=== PATIENT | male | born 1955 | race Caucasian/White ===

== ENCOUNTER 2022-02-24 01:29 | Emergency (ER) | payer MEDICARE, SELFPAY ==
[2022-02-24 01:42] VITALS: BP 137/85; PULSE 60; RESP 20; TEMP 36.8; O2SAT 98; BMI 30.5
--- NOTE | 2022-02-24 02:29 | CRLHL7_ITS ---
For Patients: As a result of the Century Cures Act, medical imaging exams and procedure reports are released immediately into your electronic medical record. You may view this report before your referring provider. If you have questions, please contact your health care provider. INDICATION: Recent COVID-19, sudden onset migraine, left leg twitching TECHNIQUE: CT Head without i.v. contrast. Coronal and sagittal reformats were obtained. COMPARISON: None FINDINGS: CSF space: Unremarkable for age. Brain: No evidence of mass, acute infarction or hemorrhage is seen. No mass-effect or midline shift is seen. Mild diffuse cortical atrophy is noted. The brain parenchyma is otherwise normal in appearance with preservation of the briggs-white matter junction. Calvarium: The visualized paranasal sinuses are well aerated. The mastoid air cells are clear. The visualized orbits are grossly unremarkable. The calvarium is unremarkable in appearance with no fractures identified. IMPRESSION: 1. No evidence of acute infarction, intracranial hemorrhage, or mass-effect seen. Please note that all CT scans at this facility use dose modulation, iterative reconstruction, and/or weight-based dosing when appropriate to reduce radiation dose to as low as reasonably achievable. Dictated by: Jayant Hogan MD @ 02/24/2022 03:05:41 (Electronically Signed)
--- NOTE | 2022-02-24 02:29 | CRLHL7_ITS ---
For Patients: As a result of the Century Cures Act, medical imaging exams and procedure reports are released immediately into your electronic medical record. You may view this report before your referring provider. If you have questions, please contact your health care provider. INDICATION: Recent COVID-19, now with return of cough TECHNIQUE: Chest radiograph 2 views COMPARISON: 06/15/2016 FINDINGS: Mediastinum: The mediastinum is normal in appearance. The heart silhouette is normal in size and morphology. Lung: Both lungs are unremarkable in appearance. No sign of pleural effusion seen. No pneumothorax is identified. Bone and Soft tissue: Unremarkable for age. IMPRESSION: 1. No acute cardiopulmonary disease is seen. Dictated by: Jayant Hogan MD @ 02/24/2022 03:01:57 (Electronically Signed)
--- NOTE | 2022-02-24 02:31 | ED_ITS ---
HPI - General Adult General Time Seen by Provider: 02:00 Date Seen: 02/24/22 Chief complaint: Anxiety Stated complaint: Anxiety Time Seen by Provider: 02/24/22 01:43 Source: patient, RN notes reviewed and old records reviewed Mode of arrival: ambulatory Limitations: no limitations History of Present Illness HPI narrative: Gaetano is a very pleasant 66-year-old gentleman who is 13 years status post prostate cancer treatment with brachial therapy, history of left hip replacement and COVID 3 weeks ago who comes to the emergency room for evaluation regarding inability to sleep and new onset headache. Patient notes that he had COVID 3 weeks ago and since that time has had altered sleep. Notes he is really having a hard time sleeping at night and that is restless legs usually in his right leg has been very active. Tonight however he felt like he would be able to sleep as he was tired at approximately 2100 hours. He went to sleep and started worried about elevated blood pressure and that his dad had a stroke. He has not had a problem with his blood pressure nor did he take his blood pressure. He states that he then had the onset of a headache in the back of his head and that he does not have a history of headaches. However, he did tell nursing staff that he does get headaches. He denies any neck pain or visual changes. He notes that tonight his left leg is bothering where is usually it is right leg. He also notes that he has had the return of his cough over the past week. He denies fevers or chills. He is not currently on any blood thinners nor has he had a history of DVT or DVTs in the family. He states in the past he has used tonic water for its quinine as a treatment for his restless legs. Denies chest pain or change in any of his symptoms with activity. Sitting up seems to improve his headache. In regards to the headache it is located in the back of his head and worsens when he lays down. He denies neck/jaw pain. He states that this time it is a 2 but will suddenly increased up to an 8. He agrees that this is unusual for him. He denies any recent trauma. He has not taken any medications. Related Data Home Medications Medication Instructions Recorded Confirmed tamsulosin 0.4 mg capsule mg PO 02/24/22 Allergies Allergy/AdvReac Type Severity Reaction Status Date / Time No Known Drug Allergies Allergy Verified 02/24/22 05:44 Review of Systems Status of ROS: Reports: 10 or more systems reviewed and unremarkable except as noted in History and below Const: Denies: fever or chills Eyes: Denies: change in vision, blurry vision or light sensitivity ENMT: Reports: throat pain (Improved with drinking water.); Denies: difficulty swallowing or ear pain Cardio: Denies: chest pain, swelling of feet/ankles, shortness of breath with exertion or shortness of breath when lying down Resp: Denies: shortness of breath GI: Denies: abdominal pain, nausea, vomiting or difficulty swallowing : Reports: urinary frequency (Chronic); Denies: painful urination Musculo: Denies: back pain Integ/Breast: Denies: rash (Right ankle secondary to reaction to taping) Neuro: Reports: headache and involuntary movements (Restless leg symptoms in left leg.); Denies: numbness in extremities Psych: Reports: anxiety and change in sleep pattern (For 3 weeks) Endo: Denies: excessive urination [facility] Medical History History of prostate cancer Surgical History History of hip replacement Social History Smoking Status: Never smoker Do you use any of these nicotine containing products: None How often do you have a drink containing alcohol: never AUDIT-C Alcohol total score: 0 Non-prescribed substance use: denies use Exam Narrative: Exam Narrative: Past medical history: Prostate cancer 13 years ago. Treated with brachiotherapy. Results was chronic restless leg syndrome right greater than left. Left hip replacement Right shoulder pain Family history: Father had a left-sided stroke. Lived for 6 years after that. 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 Denies drug use Primary MD [facility] of the [facility]. Const: Vital Signs, click to edit/add: Vital Signs - 24 hr 02/24/22 01:42 02/24/22 06:23 Temperature 98.2 F 98.2 F Pulse Rate [Left P ulse Oximeter] 60 62 Respiratory Rate 20 20 Blood Pressure [Le ft Upper Arm] 137/85 128/81 Pulse Oximetry 98 Oxygen Delivery Me thod Room Air Documenting provider has reviewed patient's vital signs: yes Common normals: average body habitus, oriented x3, no limitations, healthy appearing and alert General appearance: cooperative Other: Upon my entry into exam room 2 patient was pacing in room. He was able to sit for exam without difficulty. HENMT: Common normals: normocephalic, head/scalp atraumatic and external ears normal Head and scalp: normocephalic and atraumatic Face and sinus: normal facial exam External ear: external ears normal Eye: Common normals: PERRL General eye: normal appearance of both eyes Pupil: PERRL Direct Ophthalmoscopy: no photophobia Neck & C-Spine: Common normals: full ROM and supple Other: Neck flexion movement or rotation does not increase pain. There is no pain in her neck with movement or palpation. Resp: Common normals: normal respiratory effort Effort & inspection: able to speak in complete sentences; not actively coughing Other: Patient is noted to have decreased breath sounds in the right lower lobe, very subtle. I do not auscultate any crackles. Cardio: Common normals: regular rate and regular rhythm Rate: regular rate Rhythm: regular rhythm Heart sounds: no murmurs and no rubs GI: Common normals: soft to palpation, non-tender and no masses Palpation: soft : Common normals: no CVA tenderness Bladder/kidney exam: no CVA tenderness Back & Pelvis: Common normals: no CVA tenderness Extremity: Common normals: normal to inspection Other: [place] size area of erythema on the right anterior medial ankle. Neuro: Common normals: oriented x3, moves all extremities, no focal motor deficits and no sensory deficits noted Sensorium/orientation: alert Speech: speech normal Psych: Common normals: mental status grossly normal and thought process normal Activity/motor behavior: appropriate eye contact Thought process: normal thought process Thought content: normal thought content Course Course Hospital Course: Differential diagnosis includes but is not limited to migraine, subarachnoid hemorrhage, tumor, pneumonia. At this time will obtain head CT, chest x-ray as well as check electrolytes and blood work. This will include a CBC, comprehensive panel, TSH, and CRP. Reevaluation(s) Reevaluation #1: Patient is informed that head CT and chest x-ray have been read by Radiology is normal. I am concerned about a retrocardiac infiltrate noted on lateral imaging in association with decreased breath sounds. I have discussed with patient treatment for a post COVID pneumonia which will be Zithromax 500 mg tonight. We will also treat him with for a migraine with Reglan 10 mg IV piggyback, Benadryl 50 mg IV and Toradol 15 mg IV. Patient will also receive 1 L of normal saline. Is receptive to this plan. While we were speaking he does now tell me that he is getting short of breath when he lays down. He describes this as immediately upon lying down and only with 1 or 2 breath and then this resolved. He has normal pulse and oximetry but will add D-dimer as he has recently had COVID. Vital Signs Vital signs: Initial Vital Signs Temperature 98.2 F 02/24/22 01:42 Temperature Source Temporal Artery Scan 02/24/22 01:42 Pulse Rate 60 02/24/22 01:42 Pulse Rhythm 02/24/22 01:42 Respiratory Rate 20 02/24/22 01:42 Blood Pressure 137/85 02/24/22 01:42 Blood Pressure Mean 102 02/24/22 01:42 Blood Pressure Position Sitting 02/24/22 01:42 Pulse Oximetry 98 02/24/22 01:42 Oxygen Delivery Method 02/24/22 01:42 Vital Signs Temperature 98.2 F 02/24/22 01:42 Pulse Rate 60 02/24/22 01:42 Respiratory Rate 20 02/24/22 01:42 Blood Pressure 137/85 02/24/22 01:42 Pulse Oximetry 98 02/24/22 01:42 Oxygen Delivery Method 02/24/22 01:42 Temperature 98.2 F 02/24/22 06:23 Pulse Rate 62 02/24/22 06:23 Respiratory Rate 20 02/24/22 06:23 Blood Pressure 128/81 02/24/22 06:23 Pulse Oximetry 98 02/24/22 01:42 Oxygen Delivery Method 02/24/22 01:42 Medical Decision Making MDM Narrative Medical decision making narrative: 1. Headache-patient received treatment with Reglan 10 mg IV, Toradol 15 mg IV, and Benadryl 50 mg. He had excellent improvement in his headache but did experience Reglan provoked anxiety in spite of the use of Benadryl 50 mg. Roberta ent did receive Ativan 0.5 mg IV with improvement. Currently he has had excellent improvement of his headache although it is not completely resolved. At this time he has no temporal artery tenderness, neurological deficit, evidence of subarachnoid hemorrhage or intracranial bleed. Return if symptoms recur. 2. Elevated O-mrpvg-vyulqua had elevated D-dimer and given onset of headache and shortness of breath with lying down we did do a CT of the head. No evidence of thrombus. PE study of the chest showed no evidence of PE noted show any evidence of pneumonia. My read of the x-ray had been a retrocardiac infiltrate. Patient did receive 500 mg of p.o. Zithromax with planned 4 days of additional treatment. However I did explain to patient that CT shows no evidence of pneumonia and therefore we will not continue that medication. Mr. Vences has no calf tenderness or calf swelling, history of PE, tachycardia or hypoxia, or chest pain. 3. Restless leg syndrome-patient notes restless leg syndrome worse tonight and affecting his right leg more than the left were usually it is the other way around. He is noted to be ambulating without difficulty. No evidence of ataxia. Magnesium level is within normal limits. He describes difficulty sleeping since COVID infection 3 weeks ago. He describes or anxiety as well as increase of restless legs. Ativan 1 mg tab is given to patient to help with sleep today. 4. Disposition -patient is discharged home. We have ruled out pneumonia, intracranial finding, abnormalities of the aorta, electrolyte imbalance, hypertension, meningitis. Patient will return for worsening symptoms. Patient was very anxious to depart and feeling better. During his times here he had no evidence of chest pain and heart exam was normal. After his departure I did add a troponin on as I was unable to find an etiology of patient's symptoms. Troponin does come back elevated at 0.05. I have attempted to call patient at home as I do want him to return for further evaluation. I left message on his cell. I also contacted the cut his contact Toby who is his girlfriend listed in his chart. She is going to attempt to locate him and have him come back in for a repeat troponin and EKG. 1000 hours: Mr. Vences was woken up by his girlfriend. He denies any chest pain but notes that he still gets that transient shortness of breath when he lies down. I explained to him my addition of troponin to his labs after he left and he agrees to return to the emergency room. He notes that his restless legs did increase quite a bit with the use of the Reglan. But the Ativan certainly did help. He is going to come back to the emergency room for continued cardiac workup. I have spoken to my partner Dr. Gutiérrez. She will be seeing patient today when he returns for cardiac workup. He states that will take him a while to get things together and I asked that he return sooner rather than later as this was an important finding and needs to be followed up on. Medical Records Medical records reviewed: Yes I reviewed the patient's medical records Lab Data Lab results reviewed: Yes I reviewed the patient's lab results Labs: Lab Results 02/24/22 02/24/22 02/24/22 Range/Units 02:29 02:29 02:30 WBC 5.54 (4.50-11.00) K/uL RBC 4.09 L (4.30-5.90) m/uL Hgb 12.2 L (13.5-17.5) gm/dL Hct 35.3 L (37.0-53.0) % MCV 86 (80-100) fL MCH 30 (26-34) pg MCHC 35 (32-36) gm/dL RDW Coeff of Bhakti 12.3 (11.5-15.5) % Plt Count 239 (140-440) K/uL Neut % (Auto) 45.7 (42.0-72.0) % Lymph % (Auto) 33.0 (20-44) % [place] % (Auto) 12.1 H (0.0-11.0) % Eos % (Auto) 8.1 H (0.0-7.0) % Baso % (Auto) 0.9 (0.0-3.0) % Neut # (Auto) 2.53 (1.7-7.0) K/uL Lymph # (Auto) 1.83 (0.90-2.90) K/uL [place] # (Auto) 0.70 (0.00-0.90) K/UL Eos # (Auto) 0.40 (0.00-0.50) K/uL Baso # (Auto) 0.05 (0.00-0.30) K/uL Abs Immat Gran (auto) 0.01 (0.00-0.30) K/uL D-Dimer Quant (PE/DVT) (0.00-0.50) ug/ml Sodium 132 L (135-149) mmol/L Potassium 4.4 (3.6-5.1) mmol/L Chloride 97 (96-114) mmol/L Carbon Dioxide 26 (20-32) mmol/L BUN 18 (7-30) mg/dL Creatinine 0.8 (0.5-1.5) mg/dL Estimated Creat Clear 78.68 Estimated GFR 97 ml/min Glucose 102 (60-115) mg/dL Calcium 8.9 (8.4-10.6) mg/dL Magnesium (1.5-2.6) mg/dL Total Bilirubin 0.2 (0.1-1.5) mg/dL AST 36 H (12-35) U/L ALT 33 (4-50) U/L Alkaline Phosphatase 101 (40-150) U/L Troponin I 0.05 H (0.01-0.04) ng/mL C-Reactive Protein < 0.5 L (0.5-1.0) mg/dL Total Protein 7.4 (6.0-8.3) g/dL Albumin 4.1 (3.3-5.0) g/dL TSH (0.270-4.200) uIU/mL 02/24/22 02/24/22 02/24/22 Range/Units 02:31 02:31 03:49 WBC (4.50-11.00) K/uL RBC (4.30-5.90) m/uL Hgb (13.5-17.5) gm/dL Hct (37.0-53.0) % MCV (80-100) fL MCH (26-34) pg MCHC (32-36) gm/dL RDW Coeff of Bhakti (11.5-15.5) % Plt Count (140-440) K/uL Neut % (Auto) (42.0-72.0) % Lymph % (Auto) (20-44) % [place] % (Auto) (0.0-11.0) % Eos % (Auto) (0.0-7.0) % Baso % (Auto) (0.0-3.0) % Neut # (Auto) (1.7-7.0) K/uL Lymph # (Auto) (0.90-2.90) K/uL [place] # (Auto) (0.00-0.90) K/UL Eos # (Auto) (0.00-0.50) K/uL Baso # (Auto) (0.00-0.30) K/uL Abs Immat Gran (auto) (0.00-0.30) K/uL D-Dimer Quant (PE/DVT) 2.01 H (0.00-0.50) ug/ml Sodium (135-149) mmol/L Potassium (3.6-5.1) mmol/L Chloride (96-114) mmol/L Carbon Dioxide (20-32) mmol/L BUN (7-30) mg/dL Creatinine (0.5-1.5) mg/dL Estimated Creat Clear Estimated GFR ml/min Glucose (60-115) mg/dL Calcium (8.4-10.6) mg/dL Magnesium 1.9 (1.5-2.6) mg/dL Total Bilirubin (0.1-1.5) mg/dL AST (12-35) U/L ALT (4-50) U/L Alkaline Phosphatase (40-150) U/L Troponin I (0.01-0.04) ng/mL C-Reactive Protein (0.5-1.0) mg/dL Total Protein (6.0-8.3) g/dL Albumin (3.3-5.0) g/dL TSH 0.707 (0.270-4.200) uIU/mL Imaging Data Chest x-ray: Attestation: I have reviewed the pertinent imaging results. My impression: Increased lung markings right perihilar area as well as retrocardiac infiltrate. Radiologist's impression: Read as normal. CT scan - head: Attestation: I have reviewed the pertinent imaging results. My impression: No evidence of intracranial bleed. Radiologist's impression: No acute findings Discharge Plan Discharge Clinical Impression: Cough, Headache Patient Disposition: Home, Self-Care Condition: Improved Additional Instructions: You may use Ativan for sleep today. Returns/seek medical attention for recurrence of headache, fever, worsening symptoms or onset of new symptoms. Prescriptions: No Action tamsulosin 0.4 mg capsule PO Follow Up/Referrals: Dominic Zhou MD [Primary Care Provider] - Stand Alone Forms: [employer] Info Instructions
[2022-02-24 02:44] LABS: Basophils Absolute Auto 0.05 K/uL (0.00-0.30); Basophils Percent Auto 0.9 % (0.0-3.0); Eosinophils Percent Auto 8.1 % (0.0-7.0); Hematocrit 35.3 % (37.0-53.0); Hemoglobin* 12.2 gm/dL (13.5-17.5); Immature Granulocytes Abs Auto 0.01 K/uL (0.00-0.30); Lymphocytes Absolute Auto 1.83 K/uL (0.90-2.90); Mean Corpuscular HGB Conc 35 gm/dL (32-36); Mean Corpuscular Hemoglobin 30 pg (26-34); Mean Corpuscular Volume 86 fL (80-100); Monocytes Percent Auto 12.1 % (0.0-11.0); Neutrophils Absolute Auto 2.53 K/uL (1.7-7.0); Neutrophils Percent Auto 45.7 % (42.0-72.0); Platelet Count* 239 K/uL (140-440); RDW Coefficient of Variation % 12.3 % (11.5-15.5); Red Blood Count 4.09 m/uL (4.30-5.90); Slide Review Reflex No; White Blood Count* 5.54 K/uL (4.50-11.00)
[2022-02-24 03:03] LABS: Albumin* 4.1 g/dL (3.3-5.0); Chloride* 97 mmol/L (96-114)
[2022-02-24 03:04] LABS: Potassium* 4.4 mmol/L (3.6-5.1); Sodium* 132 mmol/L (135-149)
[2022-02-24 03:06] LABS: Bilirubin Total* 0.2 mg/dL (0.1-1.5); Creatinine* 0.8 mg/dL (0.5-1.5); Est. Creatinine Clearance* 78.68; Estimated Glomerular Filt Rate 97 ml/min
[2022-02-24 03:07] LABS: Alanine Aminotransferase* 33 U/L (4-50); Alkaline Phosphatase* 101 U/L (40-150); Aspartate Amino Transferase* 36 U/L (12-35); Blood Urea Nitrogen* 18 mg/dL (7-30); Calcium* 8.9 mg/dL (8.4-10.6); Carbon Dioxide* 26 mmol/L (20-32); Glucose* 102 mg/dL (60-115); Total Protein* 7.4 g/dL (6.0-8.3)
[2022-02-24 03:08] LABS: Magnesium* 1.9 mg/dL (1.5-2.6)
[2022-02-24 03:14] LABS: C Reactive Protein* < 0.5 mg/dL (0.5-1.0)
[2022-02-24 03:37] LABS: TSH With Reflex to FT4* 0.707 uIU/mL (0.270-4.200)
[2022-02-24] MEDS: KETOROLAC 15 MG/ML inj IVP (03:57)
[2022-02-24] MEDS: diphenhydrAMINE 50 MG/ML inj IVP (03:57)
[2022-02-24] MEDS: 0.9 % SODIUM CHLORIDE 1000 ml 1,000 ML IV (03:58)
[2022-02-24] MEDS: AZITHROMYCIN 250 MG TABLET 500 MG PO (04:00)
[2022-02-24] MEDS: METOCLOPRAMIDE HCL 10 MG in 0.9 % SODIUM CHLORIDE 100 ml 100 ML 306 MG IVPB (04:00)
[2022-02-24] MEDS: LORazepam 2 MG/ML inj 0.5 MG IVP (05:03)
[2022-02-24 05:06] LABS: D Dimer Quantitative* 2.01 ug/ml (0.00-0.50)
--- NOTE | 2022-02-24 05:14 | CRLHL7_ITS ---
For Patients: As a result of the Century Cures Act, medical imaging exams and procedure reports are released immediately into your electronic medical record. You may view this report before your referring provider. If you have questions, please contact your health care provider. INDICATION: Elevated D-dimer. Cough. Recent COVID COMPARISON: None TECHNIQUE: : CT examination of the chest was performed with the uneventful intravenous administration of 95 cc of Isovue 370 while thin axial sections were obtained from above the apices of the lungs to the lung bases. Please note that all CT scans at this facility use dose modulation, iterative reconstruction, and/or weight-based dosing when appropriate to reduce radiation dose to as low as reasonably achievable. FINDINGS: : HEART and MEDIASTINUM: The heart size is normal. There is no mediastinal or hilar adenopathy or mass. There is no pericardial effusion.Atherosclerotic vascular calcifications including the coronary arteries. PULMONARY ARTERIAL CIRCULATION: There is no visible intraluminal filling defect to suggest pulmonary embolus. LUNGS: The lungs show no focal consolidation or mass. The airways appear normal. PLEURAL SPACES: There is no pleural effusion, pneumothorax or pleural based mass. VISUALIZED UPPER ABDOMEN: Hepatic steatosis incidental small fat containing Bochdalek`s hernias OSSEOUS STRUCTURES: Age-appropriate appearance. No acute fracture or destructive process. TUBES and LINES: None. IMPRESSION: No finding of pulmonary embolus. The lungs and pleural spaces appear normal. Please note that all CT scans at this facility use dose modulation, iterative reconstruction, and/or weight-based dosing when appropriate to reduce radiation dose to as low as reasonably achievable. Dictated by Binh Guerra MD @ 02/24/2022 6:12:32 AM (Electronically Signed)
[2022-02-24 06:23] VITALS: BP 128/81; PULSE 62; RESP 20; TEMP 36.8
[2022-02-24] MEDS: LORazepam 1 MG TABLET PO (06:23)
[2022-02-24 07:37] LABS: Troponin I* 0.05 ng/mL (0.01-0.04)
== END 2022-02-24 06:24 | disposition home or self-care (01) ==
PROVIDERS: Emergency Provider Family Medicine; PCP Family Medicine
DX: R51.9 Headache, unspecified (principal); R79.89 Other specified abnormal findings of blood chemistry; G25.81 Restless legs syndrome
CPT/HCPCS: 36415; 70450; 71046; 71260; 80053; 83735; 84443; 84484; 85025; 85379; 86140; 96365; 96375; 99282; 99285; A9270; J1200; J1885; J2060; J2765; J7030; Q9967

== ENCOUNTER 2022-02-24 11:17 | Emergency (ER) | payer MEDICARE, SELFPAY ==
[2022-02-24 11:28] VITALS: BP 183/101; PULSE 57; RESP 18; TEMP 36.4; O2SAT 97; BMI 30.5
[2022-02-24 12:00] VITALS: BP 168/94; PULSE 54
[2022-02-24 12:30] VITALS: BP 166/104; PULSE 48; PULSE 49; RESP 18; O2SAT 97
[2022-02-24 12:32] LABS: Troponin I* 0.04 ng/mL (0.01-0.04)
[2022-02-24 13:00] VITALS: BP 168/104; PULSE 52; O2SAT 97
--- NOTE | 2022-02-24 13:11 | ED_ITS ---
HPI - General Adult General Date Seen: 02/24/22 Chief complaint: Unspecified Complaint, Adult Stated complaint: Elevated trop Time Seen by Provider: 02/24/22 11:22 Source: patient History of Present Illness HPI narrative: Patient is a 66-year-old male with recent history of COVID, seen last night with headache and some shortness of breath when he laid down. He attributes this to feeling panicky. He was treated for his headache, given something for anxiety, says he went home and was able to sleep, felt much better. He did have a troponin drawn which after his release came back at 0.05. He had an elevated D- dimer and had a CT scan of the chest which was unremarkable. He does tell me that he has had some shortness of breath with exertion since his COVID diagnosis. 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 He has attributed this to his COVID. He has not had any chest pain either last night or with exertion. He does not smoke. He does not have a personal or family history of coronary artery disease. Today he is feeling well, does not have any symptoms at this time. Related Data Home Medications Medication Instructions Recorded Confirmed tamsulosin 0.4 mg capsule mg PO 02/24/22 Allergies Allergy/AdvReac Type Severity Reaction Status Date / Time No Known Drug Allergies Allergy Verified 02/24/22 05:44 Review of Systems Status of ROS: Reports: 10 or more systems reviewed and unremarkable except as noted in History and below [facility] Medical History History of prostate cancer Surgical History History of hip replacement Social History Smoking Status: Never smoker Do you use any of these nicotine containing products: None How often do you have a drink containing alcohol: never AUDIT-C Alcohol total score: 0 Non-prescribed substance use: denies use Exam Narrative: Exam Narrative: Vital signs as noted above. In general, an alert, well-appearing patient. Head: Normocephalic, atraumatic. Eyes: Pupils are equal reactive. Extraocular movements are full. Conjunctivae are normal. ENT: Mucous membranes are moist. Throat is normal. Neck: Supple without lymphadenopathy. Heart: Regular rate and rhythm. No murmur or rub. Lungs: Clear bilaterally. No increased work of breathing, crackles or wheezes. Abdomen: Soft and nontender. No organomegaly. Extremities: Well perfused. No edema. No calf tenderness. Pulses intact. Neurologic: Patient is alert and oriented to person and place. Speech is fluent. Face is symmetric. Moves all extremities equally. Affect: Normal. Skin: Warm and dry. Well perfused. Const: Vital Signs, click to edit/add: Vital Signs - 24 hr 02/24/22 11:28 Temperature 97.5 F L Pulse Rate [Right] 57 L Respiratory Rate 18 Blood Pressure [Ri ght Upper Arm] 183/101 H Pulse Oximetry 97 Oxygen Delivery Me thod Room Air Documenting provider has reviewed patient's vital signs: yes Course Course Hospital Course: I reviewed patient's records from last night. We did an EKG here today which shows a sinus bradycardia, no acute ST segment changes. Nonspecific T-wave changes with flattening of the T-waves in the inferior leads and lateral leads. I rechecked the troponin, which was 0.04 today. His blood pressure was elevated on arrival at 183/101. I do not see that they have recorded a recheck, but I did see a reach checked blood pressure in the room of 163 over I believe around 90. Given that the patient is asymptomatic at this time, and that troponin is stable to slightly improved, I do not think further workup is necessary at this time. I have reviewed with him that given that he is having some shortness of breath with exertion, my bias would be to get a stress test done just to make sure that there is nothing cardiac going on here. It certainly may be that this is all related to his recent COVID, but I think it would be worthwhile to just r ule out an alternate diagnosis. I have asked him to follow up with his primary doctor in the coming week to discuss this. In the meantime, if he has any acute symptoms, if he develops any exertional chest pain, if he has worsening shortness of breath or any persistent symptoms at rest, he should return to the emergency department right away. He is comfortable with that plan. Vital Signs Vital signs: Initial Vital Signs Temperature 97.5 F L 02/24/22 11:28 Temperature Source Temporal Artery Scan 02/24/22 11:28 Pulse Rate 57 L 02/24/22 11:28 Respiratory Rate 18 02/24/22 11:28 Blood Pressure 183/101 H 02/24/22 11:28 Blood Pressure Mean 128 02/24/22 11:28 Blood Pressure Position Sitting 02/24/22 11:28 Pulse Oximetry 97 02/24/22 11:28 Oxygen Delivery Method 02/24/22 11:28 Vital Signs Temperature 97.5 F L 02/24/22 11:28 Pulse Rate 57 L 02/24/22 11:28 Respiratory Rate 18 02/24/22 11:28 Blood Pressure 183/101 H 02/24/22 11:28 Pulse Oximetry 97 02/24/22 11:28 Oxygen Delivery Method 02/24/22 11:28 Temperature 97.5 F L 02/24/22 11:28 Pulse Rate 57 L 02/24/22 11:28 Respiratory Rate 18 02/24/22 11:28 Blood Pressure 183/101 H 02/24/22 11:28 Pulse Oximetry 97 02/24/22 11:28 Oxygen Delivery Method 02/24/22 11:28 Medical Decision Making Lab Data Labs: Lab Results 02/24/22 Range/Units 11:45 Troponin I 0.04 (0.01-0.04) ng/mL Discharge Plan Discharge Clinical Impression: Suspected condition not found Patient Disposition: Home, Self-Care Condition: Stable Additional Instructions: Follow-up with your primary doctor in the next week or so to discuss whether stress testing would be appropriate. In the meantime, return to the emergency department if you have any chest pain, significant shortness of breath, li ghtheadedness or other concerning symptoms. Prescriptions: No Action tamsulosin 0.4 mg capsule PO Follow Up/Referrals: Dominic Zhou MD [Primary Care Provider] - Stand Alone Forms: [facility] Info Instructions
== END 2022-02-24 13:20 | disposition home or self-care (01) ==
PROVIDERS: Emergency Provider Emergency Medicine; PCP Family Medicine
DX: R79.89 Other specified abnormal findings of blood chemistry (principal); Z71.1 Person with feared health complaint in whom no diagnosis is made
CPT/HCPCS: 36415; 84484; 99282; 99283

== ENCOUNTER 2023-12-07 20:12 | Emergency (ER) | payer MEDICARE, SELFPAY ==
[2023-12-07 20:28] VITALS: BP 214/107; PULSE 75; RESP 16; TEMP 36.9; O2SAT 98; BMI 29.8
--- NOTE | 2023-12-07 20:42 | ED.GENADULT ---
HPI - General Adult General Chief complaint: Unspecified Complaint, Adult Stated complaint: Short of breath, slurred seach Time Seen by Provider: 12/07/23 20:31 Source: patient Mode of arrival: ambulatory Limitations: no limitations History of Present Illness HPI narrative: 68-year-old male presenting today with weakness. Patient states that he walked out to his mailbox which is up several steps when he got to the top he felt very weak, shaky and his tongue felt funny. He went back inside had diarrhea in continued to feel shaky. He states that now he is feeling better wanted to come in to be evaluated. He is concerned that his blood pressure is elevated. He states that he has had elevated blood pressures in the past and is not currently on any treatment since his blood pressures got better with weight loss. 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 He denies feeling short of breath with recent physical activity. He denies any recent illness, cough, chest pain. He denies any abdominal discomfort. He denies feeling dizzy or lightheaded. Denies diaphoresis. Patient denies a headache. No neck pain. No vertigo. Past surgical history significant for multiple orthopedic surgeries. Patient states that he takes Flomax and some kind of pain medication that he is unsure the name of. Related Data Home Medications ?Medication ?Instructions ?Recorded ?Confirmed tamsulosin 0.4 mg capsule mg PO 02/24/22 Allergies Allergy/AdvReac Type Severity Reaction Status Date / Time No Known Drug Allergies Allergy Verified 02/24/22 05:44 Review of Systems Status of ROS: Reports: 10 or more systems reviewed and unremarkable except as noted in History and below [facility] Medical History History of prostate cancer ?Z85.46 - Personal history of malignant neoplasm of prostate (ICD-10) Surgical History History of hip replacement ?Z96.649 - Presence of unspecified artificial hip joint (ICD-10) Social History Smoking Status: Never smoker Do you use any of these nicotine containing products: None How often do you have a drink containing alcohol: never AUDIT-C Alcohol total score: 0 Non-prescribed substance use: denies use Exam Narrative: Exam Narrative: Well-nourished well-developed patient, is a bit anxious. Alert and oriented. Answers questions appropriately. Mood and affect are appropriate. Thoughts are goal oriented and rational. No tangential or magical thinking noted. Patient speaks in full sentences without needing to catch his breath. Speech is not slurred or pressured, he has no word-finding difficulty. He pronounces everything normally. HEENT: Normocephalic atraumatic. Pupils are equally round reactive to light. Extraocular muscles are intact. Conjunctivae are moist without any icterus noted. Moist mucous membranes. Posterior pharynx is normal. Neck is soft without any lymphadenopathy or thyromegaly. No masses are appreciated. Cardiovascular: Heart is regular rate and rhythm S1 and S2 are present without any murmurs. Lungs: Clear to auscultation bilaterally no wheezes rhonchi or rales are appreciated. Patient takes deep breaths without any discomfort. Abdomen: Soft and nontender, quite protuberant. Extremities: Bilateral lower extremities are without edema. Normal DP and PT pulses. Skin: Well perfused without any obvious rashes. Strength is 5/5 of the upper and lower extremities. Reflexes are 2+ and symmetric at the knees. Romberg sign is negative. Cranial nerves 3-12 are normal. Acfvhl-ff-occe is normal. Rqny-fz-nryy is normal. There is no nystagmus either horizontally or vertically. Gait is normal. Const: Vital Signs, click to edit/add: Vital Signs - 24 hr 12/07/23 20:28 12/07/23 22:17 Temperature 98.4 F Pulse Rate [Pulse Oximeter] 75 64 Respiratory Rate 16 16 Blood Pressure [Ri ght Upper Arm] 214/107 H 144/99 H Pulse Oximetry 98 97 Oxygen Delivery Me thod Room Air Room Air Course Course ED Course: IV is established and patient is given 0.5 mg of Ativan. EKG, read by me, shows normal sinus rhythm, pulse 59 Lab work was drawn: CBC and chemistries unremarkable. Normal thyroid. LFTs unremarkable. Normal troponin. After treatment patient felt significantly better. He was no longer feeling weak or shaky. Blood pressure dropped to 144/99. However, he stated that his tongue still felt funny, despite everything else feeling significantly better. He describes it as feeling thick. Because of this we did proceed with a head CT which is unremarkable and head and neck CTA, which were both unremarkable aside from some carotid bulb plaque and vertebral artery focal stenosis. I did consult with Dr. Christie, neurology at [facility] who did not feel that these lesions would explain his symptoms. Vital Signs Vital signs: Initial Vital Signs Temperature 98.4 F 12/07/23 20:28 Temperature Source Temporal Artery Scan 12/07/23 20:28 Pulse Rate 75 12/07/23 20:28 Respiratory Rate 16 12/07/23 20:28 Blood Pressure 214/107 H 12/07/23 20:28 Blood Pressure Mean 142 H 12/07/23 20:28 Blood Pressure Position Sitting 12/07/23 20:28 Pulse Oximetry 98 12/07/23 20:28 Oxygen Delivery Method Room Air 12/07/23 20:28 Vital Signs Temperature 98.4 F 12/07/23 20:28 Pulse Rate 75 12/07/23 20:28 Respiratory Rate 16 12/07/23 20:28 Blood Pressure 214/107 H 12/07/23 20:28 Pulse Oximetry 98 12/07/23 20:28 Oxygen Delivery Method Room Air 12/07/23 20:28 Temperature 98.4 F 12/07/23 20:28 Pulse Rate 64 12/07/23 22:17 Respiratory Rate 16 12/07/23 22:17 Blood Pressure 144/99 H 12/07/23 22:17 Pulse Oximetry 97 12/07/23 22:17 Oxygen Delivery Method Room Air 12/07/23 22:17 Medications Administered Medications: Discontinued Medications Generic Name Dose Route Start Last Admin Trade Name Freq PRN Reason Stop Dose Admin Lorazepam 0.5 mg 12/07/23 20:41 12/07/23 21:05 Lorazepam 2 Mg/Ml Inj IVP 12/07/23 20:42 0.5 mg ONCE ONE Administration Medical Decision Making MDM Narrative Medical decision making narrative: 68-year-old male with elevated blood pressure, episode of weakness and discomfort of the tongue. Patient again feeling significantly better after treatment with Ativan in the ED today. Workup was unremarkable. Recommend he follow up with primary care provider in the next 1-2 weeks and check his blood pressures periodically. Medical Records Medical records reviewed: Yes I reviewed the patient's medical records Lab Data Lab results reviewed: Yes I reviewed the patient's lab results Labs: Lab Results 12/07/23 12/07/23 12/07/23 Range/Units 20:57 20:57 20:57 WBC 5.25 (4.50-11.00) K/uL RBC 4.56 (4.30-5.90) m/uL Hgb 13.4 L (13.5-17.5) gm/dL Hct 39.2 (37.0-53.0) % MCV 86 (80-100) fL MCH 29 (26-34) pg MCHC 34 (32-36) gm/dL RDW Coeff of Bhakti 12.8 (11.5-15.5) % Plt Count 195 (140-440) K/uL Neut % (Auto) 51.5 (42.0-72.0) % Lymph % (Auto) 34.3 (20-44) % [place] % (Auto) 8.8 (0.0-11.0) % Eos % (Auto) 4.6 (0.0-7.0) % Baso % (Auto) 0.8 (0.0-3.0) % Neut # (Auto) 2.71 (1.7-7.0) K/uL Lymph # (Auto) 1.80 (0.90-2.90) K/uL [place] # (Auto) 0.50 (0.00-0.90) K/UL Eos # (Auto) 0.24 (0.00-0.50) K/uL Baso # (Auto) 0.04 (0.00-0.30) K/uL Abs Immat Gran (auto) 0.00 (0.00-0.30) K/uL Imm/Tot Granulo (auto) 0.0 % Sodium Cancelled 133 L Potassium Cancelled 4.1 Chloride Cancelled Carbon Dioxide Anion Gap BUN Creatinine Estimated Creat Clear Estimated GFR Glucose Lactate (0.5-1.9) mmol/L Calcium Total Bilirubin (0.1-1.5) mg/dL Direct Bilirubin (0.0-0.5) mg/dL AST (12-35) U/L ALT (4-50) U/L Alkaline Phosphatase (40-150) U/L Troponin I (0.01-0.04) ng/mL C-Reactive Protein NT-Pro-B Natriuret Pep pg/mL Total Protein (6.0-8.3) g/dL Albumin (3.3-5.0) g/dL TSH (0.270-4.20) uIU/mL 12/07/23 12/07/23 12/07/23 Range/Units 20:57 20:57 20:57 WBC (4.50-11.00) K/uL RBC (4.30-5.90) m/uL Hgb (13.5-17.5) gm/dL Hct (37.0-53.0) % MCV (80-100) fL MCH (26-34) pg MCHC (32-36) gm/dL RDW Coeff of Bhakti (11.5-15.5) % Plt Count (140-440) K/uL Neut % (Auto) (42.0-72.0) % Lymph % (Auto) (20-44) % [place] % (Auto) (0.0-11.0) % Eos % (Auto) (0.0-7.0) % Baso % (Auto) (0.0-3.0) % Neut # (Auto) (1.7-7.0) K/uL Lymph # (Auto) (0.90-2.90) K/uL [place] # (Auto) (0.00-0.90) K/UL Eos # (Auto) (0.00-0.50) K/uL Baso # (Auto) (0.00-0.30) K/uL Abs Immat Gran (auto) (0.00-0.30) K/uL Imm/Tot Granulo (auto) % Sodium Potassium Chloride 101 Carbon Dioxide Cancelled 24 Anion Gap Cancelled 8 BUN Cancelled Creatinine Estimated Creat Clear Estimated GFR Glucose Lactate (0.5-1.9) mmol/L Calcium Total Bilirubin (0.1-1.5) mg/dL Direct Bilirubin (0.0-0.5) mg/dL AST (12-35) U/L ALT (4-50) U/L Alkaline Phosphatase (40-150) U/L Troponin I (0.01-0.04) ng/mL C-Reactive Protein NT-Pro-B Natriuret Pep pg/mL Total Protein (6.0-8.3) g/dL Albumin (3.3-5.0) g/dL TSH (0.270-4.20) uIU/mL 12/07/23 12/07/23 12/07/23 Range/Units 20:57 20:57 20:57 WBC (4.50-11.00) K/uL RBC (4.30-5.90) m/uL Hgb (13.5-17.5) gm/dL Hct (37.0-53.0) % MCV (80-100) fL MCH (26-34) pg MCHC (32-36) gm/dL RDW Coeff of Bhakti (11.5-15.5) % Plt Count (140-440) K/uL Neut % (Auto) (42.0-72.0) % Lymph % (Auto) (20-44) % [place] % (Auto) (0.0-11.0) % Eos % (Auto) (0.0-7.0) % Baso % (Auto) (0.0-3.0) % Neut # (Auto) (1.7-7.0) K/uL Lymph # (Auto) (0.90-2.90) K/uL [place] # (Auto) (0.00-0.90) K/UL Eos # (Auto) (0.00-0.50) K/uL Baso # (Auto) (0.00-0.30) K/uL Abs Immat Gran (auto) (0.00-0.30) K/uL Imm/Tot Granulo (auto) % Sodium Potassium Chloride Carbon Dioxide Anion Gap BUN 33 H Creatinine Cancelled 0.8 Estimated Creat Clear Cancelled 76.52 Estimated GFR Cancelled Glucose Lactate (0.5-1.9) mmol/L Calcium Total Bilirubin (0.1-1.5) mg/dL Direct Bilirubin (0.0-0.5) mg/dL AST (12-35) U/L ALT (4-50) U/L Alkaline Phosphatase (40-150) U/L Troponin I (0.01-0.04) ng/mL C-Reactive Protein NT-Pro-B Natriuret Pep pg/mL Total Protein (6.0-8.3) g/dL Albumin (3.3-5.0) g/dL TSH (0.270-4.20) uIU/mL 12/07/23 12/07/23 12/07/23 Range/Units 20:57 20:57 20:57 WBC (4.50-11.00) K/uL RBC (4.30-5.90) m/uL Hgb (13.5-17.5) gm/dL Hct (37.0-53.0) % MCV (80-100) fL MCH (26-34) pg MCHC (32-36) gm/dL RDW Coeff of Bhakti (11.5-15.5) % Plt Count (140-440) K/uL Neut % (Auto) (42.0-72.0) % Lymph % (Auto) (20-44) % [place] % (Auto) (0.0-11.0) % Eos % (Auto) (0.0-7.0) % Baso % (Auto) (0.0-3.0) % Neut # (Auto) (1.7-7.0) K/uL Lymph # (Auto) (0.90-2.90) K/uL [place] # (Auto) (0.00-0.90) K/UL Eos # (Auto) (0.00-0.50) K/uL Baso # (Auto) (0.00-0.30) K/uL Abs Immat Gran (auto) (0.00-0.30) K/uL Imm/Tot Granulo (auto) % Sodium Potassium Chloride Carbon Dioxide Anion Gap BUN Creatinine Estimated Creat Clear Estimated GFR 96 Glucose Cancelled 96 Lactate 1.1 (0.5-1.9) mmol/L Calcium Cancelled 9.0 Total Bilirubin 0.7 (0.1-1.5) mg/dL Direct Bilirubin 0.4 (0.0-0.5) mg/dL AST 37 H (12-35) U/L ALT 26 (4-50) U/L Alkaline Phosphatase 89 (40-150) U/L Troponin I 0.03 (0.01-0.04) ng/mL C-Reactive Protein Cancelled NT-Pro-B Natriuret Pep pg/mL Total Protein (6.0-8.3) g/dL Albumin (3.3-5.0) g/dL TSH (0.270-4.20) uIU/mL 12/07/23 12/07/23 Range/Units 20:57 20:57 WBC (4.50-11.00) K/uL RBC (4.30-5.90) m/uL Hgb (13.5-17.5) gm/dL Hct (37.0-53.0) % MCV (80-100) fL MCH (26-34) pg MCHC (32-36) gm/dL RDW Coeff of Bhakti (11.5-15.5) % Plt Count (140-440) K/uL Neut % (Auto) (42.0-72.0) % Lymph % (Auto) (20-44) % [place] % (Auto) (0.0-11.0) % Eos % (Auto) (0.0-7.0) % Baso % (Auto) (0.0-3.0) % Neut # (Auto) (1.7-7.0) K/uL Lymph # (Auto) (0.90-2.90) K/uL [place] # (Auto) (0.00-0.90) K/UL Eos # (Auto) (0.00-0.50) K/uL Baso # (Auto) (0.00-0.30) K/uL Abs Immat Gran (auto) (0.00-0.30) K/uL Imm/Tot Granulo (auto) % Sodium Potassium Chloride Carbon Dioxide Anion Gap BUN Creatinine Estimated Creat Clear Estimated GFR Glucose Lactate (0.5-1.9) mmol/L Calcium Total Bilirubin (0.1-1.5) mg/dL Direct Bilirubin (0.0-0.5) mg/dL AST (12-35) U/L ALT (4-50) U/L Alkaline Phosphatase (40-150) U/L Troponin I (0.01-0.04) ng/mL C-Reactive Protein 0.9 NT-Pro-B Natriuret Pep 111 Cancelled pg/mL Total Protein 8.5 H (6.0-8.3) g/dL Albumin 4.8 (3.3-5.0) g/dL TSH 0.408 (0.270-4.20) uIU/mL Imaging Data CT scan - head: Attestation: I have reviewed the pertinent imaging results. Radiologist's impression: Study:?CT-Head W/O-12/07/2023 10:53:54 PM Ordering Physician:Lloyd Garcia Preliminary Report: INDICATION: arm numb, head injury from fall TECHNIQUE: CT Head without i.v. contrast. Coronal and sagittal reformats were obtained. COMPARISON: None FINDINGS: CSF space: Unremarkable for age. Brain: No evidence of mass, acute infarction or hemorrhage is seen. No mass-effect or midline shift is seen. Mild diffuse cortical atrophy is noted. The brain parenchyma is otherwise normal in appearance with preservation of the briggs-white matter junction. Calvarium: The visualized paranasal sinuses are well aerated. The mastoid air cells are clear. The visualized orbits are grossly unremarkable. The calvarium is unremarkable in appearance with no fractures identified. IMPRESSION: 1. No evidence of acute infarction, intracranial hemorrhage, or mass-effect seen. Head CTA: Attestation: I have reviewed the pertinent imaging results. Radiologist's impression: Study:?CT-Head Angio [id number]/95CC [id number] ALL IMAGES ON ANGIO H-12/07/2023 10:55:31 PM Ordering Physician:Lloyd Garcia Preliminary Report: PRELIMINARY IMPRESSION: 1. 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 2. The [place] of [place] is otherwise unremarkable with no significant stenosis or occlusion seen. 3. Calcific plaque is present in the carotid bulbs bilaterally with 60 percent diameter stenosis on the left by NASCET criteria and 70 percent stenosis on the right. 4. Focal stenosis is present at the origin of the left vertebral artery. The right vertebral artery is unremarkable in appearance. Neck CTA: Attestation: I have reviewed the pertinent imaging results. Radiologist's impression: Study:?CT-Neck Angio Angio ALL IMAGES ON ANGIO HEAD-12/07/2023 10:56:24 PM Ordering Physician:Lloyd Garcia Preliminary Report: PRELIMINARY IMPRESSION: 1. 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 2. The [place] of Wu is otherwise unremarkable with no significant stenosis or occlusion seen. 3. Calcific plaque is present in the carotid bulbs bilaterally with 60 percent diameter stenosis on the left by NASCET criteria and 70 percent stenosis on the right. 4. Focal stenosis is present at the origin of the left vertebral artery. The right vertebral artery is unremarkable in appearance. ECG Data Attestation: I personally reviewed and interpreted this ECG as follows: Discharge Plan Discharge Clinical Impression: Elevated blood pressure reading, Weakness Patient Disposition: Home, Self-Care Condition: Improved Additional Instructions: Recommend you follow-up with your primary care provider in the next 1-2 weeks. Also recommend you periodically check your blood pressure, 1-2 times per week at random times, right those numbers down and bring them in to your primary care provider. Prescriptions: No Action tamsulosin 0.4 mg capsule PO Follow Up/Referrals: Dominic Zhou MD [Primary Care Provider] - Stand Alone Forms: [employer] Info Instructions
[2023-12-07 21:04] LABS: Basophils Absolute Auto 0.04 K/uL (0.00-0.30); Basophils Percent Auto 0.8 % (0.0-3.0); Eosinophils Absolute Auto 0.24 K/uL (0.00-0.50); Eosinophils Percent Auto 4.6 % (0.0-7.0); Hematocrit 39.2 % (37.0-53.0); Hemoglobin* 13.4 gm/dL (13.5-17.5); Lymphocytes Percent Auto 34.3 % (20-44); Mean Corpuscular HGB Conc 34 gm/dL (32-36); Mean Corpuscular Hemoglobin 29 pg (26-34); Mean Corpuscular Volume 86 fL (80-100); Monocytes Percent Auto 8.8 % (0.0-11.0); Neutrophils Absolute Auto 2.71 K/uL (1.7-7.0); Neutrophils Percent Auto 51.5 % (42.0-72.0); Platelet Count* 195 K/uL (140-440); RDW Coefficient of Variation % 12.8 % (11.5-15.5); Red Blood Count 4.56 m/uL (4.30-5.90); White Blood Count* 5.25 K/uL (4.50-11.00)
[2023-12-07] MEDS: LORazepam 2 MG/ML inj 0.5 MG IVP (21:05)
[2023-12-07 21:15] LABS: Lactate* 1.1 mmol/L (0.5-1.9)
[2023-12-07 21:18] LABS: Slide Review Reflex No
[2023-12-07 21:31] LABS: Albumin* 4.8 g/dL (3.3-5.0); Chloride* 101 mmol/L (96-114)
[2023-12-07 21:32] LABS: Potassium* 4.1 mmol/L (3.6-5.1); Sodium* 133 mmol/L (135-149)
[2023-12-07 21:34] LABS: Creatinine* 0.8 mg/dL (0.5-1.5); Est. Creatinine Clearance* 76.52; Estimated Glomerular Filt Rate 96 ml/min
[2023-12-07 21:35] LABS: Alanine Aminotransferase* 26 U/L (4-50); Alkaline Phosphatase* 89 U/L (40-150); Anion Gap 8 mEq/L (7-15); Aspartate Amino Transferase* 37 U/L (12-35); Bilirubin Direct* 0.4 mg/dL (0.0-0.5); Bilirubin Total* 0.7 mg/dL (0.1-1.5); Blood Urea Nitrogen* 33 mg/dL (7-30); Carbon Dioxide* 24 mmol/L (20-32); Glucose* 96 mg/dL (60-115); Total Protein* 8.5 g/dL (6.0-8.3)
[2023-12-07 21:38] LABS: C Reactive Protein* 0.9 mg/dL (0.5-1.0)
[2023-12-07 21:48] LABS: Troponin I* 0.03 ng/mL (0.01-0.04)
[2023-12-07 22:01] LABS: NT Pro B Type NatriureticPept* 111 pg/mL
[2023-12-07 22:03] LABS: Thyroid Stimulating Hormone* 0.408 uIU/mL (0.270-4.20)
--- NOTE | 2023-12-07 22:13 | CRLHL7_ITS ---
For Patients: As a result of the Century Cures Act, medical imaging exams and procedure reports are released immediately into your electronic medical record. You may view this report before your referring provider. If you have questions, please contact your health care provider. DATE: 12/07/2023 CLINICAL HISTORY: Patient with focal neurological deficits. TECHNIQUE: Standard helical CT image acquisition of the neck up to the skull base after bolus intravenous contrast enhancement. 2D and 3D MIP images for post-processing were performed and interpreted on an independent workstation and 3D images were permanently archived. COMPARISON: CT same day. FINDINGS: The origins of the great vessels from the aortic arch are patent. The origin of the right vertebral artery is patent. The origin of the left vertebral artery is patent. The common carotid arteries are patent. There is a mild (50%) stenosis at the origin of the right internal carotid artery by NASCET criteria. This is caused by calcified plaque with a 2mm residual lumen. There is a moderate (55%) stenosis at the origin of the left internal carotid artery by NASCET criteria. This is caused by non-calcified plaque with a 2mm residual lumen. The rest of the cervical segments of the internal carotid arteries are patent up to the skull base. The vertebral arteries are codominant. The cervical segments of the vertebral arteries are patent up to the skull base. The visualized lung apices are unremarkable. The thyroid gland is unremarkable. The soft tissues of the neck are unremarkable. There are degenerative changes in the cervical spine. IMPRESSION: 1. Mild (50%) stenosis at the origin of the right internal carotid artery by NASCET criteria. This is caused by calcified plaque with a 2mm residual lumen. 2. Moderate (55%) stenosis at the origin of the left internal carotid artery by NASCET criteria. This is caused by non-calcified plaque with a 2mm residual lumen. Please note that all CT scans at this facility use dose modulation, iterative reconstruction, and/or weight-based dosing when appropriate to reduce radiation dose to as low as reasonably achievable. Dictated by Sergio Myers MD @ 12/08/2023 12:02:04 PM (Electronically Signed)
--- NOTE | 2023-12-07 22:13 | CRLHL7_ITS ---
For Patients: As a result of the Century Cures Act, medical imaging exams and procedure reports are released immediately into your electronic medical record. You may view this report before your referring provider. If you have questions, please contact your health care provider. DATE: 12/07/2023 CLINICAL HISTORY: Patient with focal neurological deficits. TECHNIQUE: Standard helical CT image acquisition through the intracranial circulation following intravenous administration of contrast material with bolus tracking. 2D and 3D MIP images for post-processing were performed and interpreted on an independent workstation and 3D images were permanently archived. COMPARISON: CT same day. FINDINGS: There is no proximal intracranial large vessel occlusion. 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 The right internal carotid artery is normal. The right middle cerebral artery and its branches are normal. The right anterior cerebral artery and its branches are normal. The left middle cerebral artery and its branches are normal. The left anterior cerebral artery and its branches are normal. The anterior communicating artery is well visualized and appears normal. The right vertebral artery and PICA are normal. The left vertebral artery and PICA are normal. The vertebral arteries are codominant. The basilar artery is patent and appears normal. The right posterior cerebral artery is normal. The left posterior cerebral artery is normal. The visualized venous structures are patent. IMPRESSION: 1. Patent proximal intracranial vasculature. 2. 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 Telehealth consultation with [facility]`s Neurointerventional team for management of this aneurysm can be arrange by calling . Sergio Myers M.D. Neurointerventional Radiologist [facility] Pager: Office/Appointments: Answering Service: [facility]: [email or web address] Please note that all CT scans at this facility use dose modulation, iterative reconstruction, and/or weight-based dosing when appropriate to reduce radiation dose to as low as reasonably achievable. Dictated by Sergio Myers MD @ 12/08/2023 12:06:52 PM (Electronically Signed)
--- NOTE | 2023-12-07 22:13 | CRLHL7_ITS ---
For Patients: As a result of the Century Cures Act, medical imaging exams and procedure reports are released immediately into your electronic medical record. You may view this report before your referring provider. If you have questions, please contact your health care provider. INDICATION: arm numb, head injury from fall TECHNIQUE: CT Head without i.v. contrast. Coronal and sagittal reformats were obtained. COMPARISON: None FINDINGS: CSF space: Unremarkable for age. Brain: No evidence of mass, acute infarction or hemorrhage is seen. No mass-effect or midline shift is seen. Mild diffuse cortical atrophy is noted. The brain parenchyma is otherwise normal in appearance with preservation of the briggs-white matter junction. Calvarium: The visualized paranasal sinuses are well aerated. The mastoid air cells are clear. The visualized orbits are grossly unremarkable. The calvarium is unremarkable in appearance with no fractures identified. IMPRESSION: 1. No evidence of acute infarction, intracranial hemorrhage, or mass-effect seen. The findings were discussed with Dr. Johnson at 11:27 PM. Please note that all CT scans at this facility use dose modulation, iterative reconstruction, and/or weight-based dosing when appropriate to reduce radiation dose to as low as reasonably achievable. Dictated by: Jayant Hogan MD @ 12/07/2023 23:34:11 (Electronically Signed)
[2023-12-07 22:17] VITALS: BP 144/99; PULSE 64; RESP 16; O2SAT 97
[2023-12-07 23:00] VITALS: O2SAT 97
[2023-12-08 00:23] VITALS: BP 132/84; PULSE 68; RESP 16; TEMP 36.9; O2SAT 97
[2023-12-08 00:25] VITALS: BP 132/84; PULSE 68; RESP 16; TEMP 36.9
== END 2023-12-08 00:25 | disposition home or self-care (01) ==
PROVIDERS: Emergency Provider Family Medicine; PCP Family Medicine
DX: R53.1 Weakness (principal); R03.0 Elevated blood-pressure reading, without diagnosis of hypertension
CPT/HCPCS: 36415; 70450; 70496; 70498; 80048; 80076; 83605; 83880; 84443; 84484; 85025; 86140; 93005; 94761; 96374; 99285; J2060; Q9967

== ENCOUNTER 2023-12-22 11:00 | Outpatient (RCR) | payer MEDICARE, BC, SELFPAY ==
--- NOTE | 2023-12-22 12:39 | PT.OPEX ---
PT [place] Outpatient Eval PT [facility] Outpatient Eval Start: 12/22/23 11:01 Freq: Status: Active Protocol: Document 12/22/23 11:01 IRINEO (Rec: 12/22/23 12:39 IRINEO [id number]) E-signed By Meredith Schulz PT Physical Therapy Outpatient Evaluation Insurance Information Recert Due Date 03/20/24 Insurance Name Medicare B,Blue Cross/Blue Shield Medical Diagnosis CVA Treating Diagnosis WEAKNESS DISCOORDINATION Referring LUDWIG NGUYEN Subjective Subjective PATIENT DESCRIBES WALKING TO THE MAILBOX ON 12/07/23 AND FEELING INCREDIBLY WEEK ALONG WITH EXPERIENCING LOWER GI ISSUE ONCE HE RETURNED TO HIS HOME. HE WENT TO ER WHERE HE REPORTED LUE>LLE WEAKNESS AND TONGUE THICKNESS. HE PRESENTS TODAY HAVING SEEN TOBIAS IN OT WITH CHALLENGES WITH LEFT NEGLECT, IMPAIRED FINE MOTOR SKILLS AND COORDINATED MVMTS THAT WILL BE ADDRESSED. HE STATES, I'M JUST FATIGUED WITH SOME OF THE EASIEST OF TASKS LIKE GOING TO THE GROCERY STORE. I NEED LIKE A 2 HOUR NAP. 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 HE HAS CANCELED A COUPLE OF CLIENTS TODAY BUT FEELS THAT HE COULD RESUME THEM LONG HE CAN REST MORE. LASTLY, HE HAS HAD A 15YR H/O PROSTATE CANCER AND CHALLENGES SLEEPING THROUGHOUT THE NIGHT D/T URGE WAKING HIM EVERY 2 HOURS. HE IS CHRONICALLY FATIGUE THAT ALSO MAY BE FEEDING INTO HIS RECOVERY. HE IS HERE TO MAKE SURE HE IS ADDRESSING ANY COORDINATION ISSUES WELL BE DIRECTED FOR HIS HIP WEAKNESS. 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 PMHX LISTED ABOVE WITH PREDOMINANT DEFICITS WITH LEFT HIP AND RIGHT ANKLE. 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 SCHULER OF [facility]UR[facility] AT [facility]) DOES NOT BELIEVE THESE LESIONS ARE THE CAUSATIVE FACTOR OF HIS SYMPTOMS BUT MORE ALONG THE LINES OF AFIB. HE HAS WILL TAKE PLAVIX FOR 21 DAYS THEN CONTINUE WITH ASA 325 AND ATORVASTATIN INDEFINITELY. HE DEMONSTRATES GREAT BALANCE SCORES NOTING MCTSB 30/30/30 30, 12 STS IN 30 SEC, DGI, AND TUG OF 8 SECONDS. WE DISCUSSED THE BASIC STRENGTHENING TO ALLOW FOR GOOD CONDITIONING IN REGARD TO THE LEFT HIP AND RIGHT ANKLE DEFICITS WHILE WE WORK ON HIGHER LEVEL COORDINATION AND FUNCTIONAL STATIC AND DYNAMIC BALANCE. PATIENT APPROPRIATE OR SKILLED PHYSICAL THERAPY TO ADDRESS THE ABOVE MENTION POC WITH PATIENT VERBALIZING UNDERSTANDING AND IN FULL AGREEMENT. Primary Functional Limitations DYNAMIC BALANCE ON A VARIETY OF SURFACES STAMINA Plan of Care Rehabilitation Potential Excellent Physical Therapy Goals 1. IMPROVE CORE/HIP/GLUT STRENGTH AND TRUNK STABILITY OVER THE NEXT 4-6 VISITS FOR IMPROVED FUNCTIONAL MOBILITY, BALANCE, AND GAIT TO DECREASE RISK FOR FALLS. 2. IMPROVE BALANCE, COORDINATION OVER THE NEXT 4-6 VISITS FOR IMPROVED GAIT AND SAFETY FOR COMMUNITY NAVIGATION WELL PEER CENTERED ACTIVITIES AND RETURN TO SALON COORDINATOR PERSONAL TRAINING. 4. PATIENT WILL BE INDEPENDENT WITH HER HEP WITH IN 4-6 VISITS FOR PROGRESSION TOWARD THE ABOVEMENTIONED GOALS, CONTINUED SELF IMPROVEMENT WITH STRENGTH, COORDINATION, GAIT, AND SAFETY AWARENESS. Coordination/Communication With Referral Source Treatment Plan/Direct Interventions Gait Training,Neuromuscular Re -ed,Self-Care/Home Management, Therapeutic Activities, Therapeutic Exercises Frequency/Duration 1X/WK Patient Will Be Discharged From Therapy Completion of LTG(s), Independently Progressing Evaluation Billing Untimed Code Treatment Minutes 20 PT Eval No Charge No Complexity Moderate Certification Information Initial Certification Date 12/22/23 Ending Certification Date 03/20/24 Provider Signature Required Yes Provider Signature Shows Agreement With POC & Medical Necessity Physician NPI Number Write NPI# Here Physician Comment/Change : Physician Signature & Date Requested Please Sign/Date Here
== END 2024-01-28 15:02 | disposition home or self-care (01) ==
PROVIDERS: PCP Family Medicine; Visit Provider Family Medicine
DX: Z86.73 Personal history of transient ischemic attack (TIA), and cerebral infarction without residual deficits (principal); R29.898 Other symptoms and signs involving the musculoskeletal system; Z51.89 Encounter for other specified aftercare
CPT/HCPCS: 97162; 97165; 97535

== ENCOUNTER 2024-06-08 15:32 | Outpatient (CLI) | payer MEDICARE, BC, SELFPAY | END 2024-06-08 15:33 | disposition home or self-care (01) | LOC: AMB 06-09 01:44 | PROVIDERS: PCP Family Medicine; Visit Provider Family Medicine | DX: M54.9 Dorsalgia, unspecified (principal) | CPT/HCPCS: A0425; A0427 ==

== ENCOUNTER 2024-06-08 16:09 | Emergency (ER) | payer MEDICARE, BC, SELFPAY ==
[2024-06-08 16:14] VITALS: BP 159/102; PULSE 76; RESP 14; TEMP 36.9; O2SAT 96; BMI 31.4
--- NOTE | 2024-06-08 16:24 | ED.GENADULT ---
HPI - General Adult General Chief complaint: Back Injury/Pain Stated complaint: Back pain Time Seen by Provider: 06/08/24 16:14 History of Present Illness HPI narrative: Back pain starting at 6 am this morning . Nontraumatic. States it was from vacuuming last night. Falling asleep in triage in between questions. 69-year-old man presenting to the emergency department with complaint of back pain. Had been doing some vacuuming last night. Pain started this agency trainer. Now it is just extremely painful to move at all. He notes spasms all over on his back. There was no fall/trauma. Not noting any hematuria. No dysuria frequency urgency. Denies a history of back issues. 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 Related Data Home Medications ?Medication ?Instructions ?Recorded ?Confirmed diclofenac sodium 75 mg 75 mg PO BID PRN pain 06/08/24 06/08/24 tablet,delayed release methocarbamol 750 mg tablet 750 mg PO Q8H PRN muscle spasm 06/08/24 06/08/24 tramadol 50 mg tablet 50 mg PO BID PRN pain 06/08/24 06/08/24 Allergies Allergy/AdvReac Type Severity Reaction Status Date / Time No Known Drug Allergies Allergy Verified 02/24/22 05:44 Review of Systems Status of ROS: Reports: 6 or more systems reviewed and unremarkable except as noted in History and below [facility] Medical History History of prostate cancer ?Z85.46 - Personal history of malignant neoplasm of prostate (ICD-10) Surgical History History of hip replacement ?Z96.649 - Presence of unspecified artificial hip joint (ICD-10) Social History Smoking Status: Never smoker Do you use any of these nicotine containing products: None How often do you have a drink containing alcohol: never AUDIT-C Alcohol total score: 0 Non-prescribed substance use: denies use Exam Narrative: Exam Narrative: Groaning in pain with any movement. Otherwise appears to be breathing easily. No midline back tenderness. No SI joint area tenderness. He has tension to palpation in the paraspinal musculatures. Abdomen also is quite tense though not tender. Const: Vital Signs, click to edit/add: Vital Signs - 24 hr 06/08/24 16:14 Temperature 98.5 F Pulse Rate [Pulse Oximeter] 76 Respiratory Rate 14 Blood Pressure [Ri ght Upper Arm] 159/102 H Pulse Oximetry 96 Oxygen Delivery Me thod Room Air Documenting provider has reviewed patient's vital signs: yes Course Vital Signs Vital signs: Initial Vital Signs Temperature 98.5 F 06/08/24 16:14 Temperature Source Temporal Artery Scan 06/08/24 16:14 Pulse Rate 76 06/08/24 16:14 Respiratory Rate 14 06/08/24 16:14 Blood Pressure 159/102 H 06/08/24 16:14 Blood Pressure Mean 121 H 06/08/24 16:14 Blood Pressure Position Sitting 06/08/24 16:14 Pulse Oximetry 96 06/08/24 16:14 Oxygen Delivery Method Room Air 06/08/24 16:14 Vital Signs Temperature 98.5 F 06/08/24 16:14 Pulse Rate 76 06/08/24 16:14 Respiratory Rate 14 06/08/24 16:14 Blood Pressure 159/102 H 06/08/24 16:14 Pulse Oximetry 96 06/08/24 16:14 Oxygen Delivery Method Room Air 06/08/24 16:14 Temperature 98.5 F 06/08/24 16:14 Pulse Rate 81 06/08/24 18:45 Respiratory Rate 14 06/08/24 16:14 Blood Pressure 126/92 H 06/08/24 18:31 Pulse Oximetry 91 06/08/24 18:45 Oxygen Delivery Method Room Air 06/08/24 18:31 Medications Administered Medications: Discontinued Medications Generic Name Dose Route Start Last Admin Trade Name Freq PRN Reason Stop Dose Admin Hydromorphone HCl 1 mg 06/08/24 16:37 06/08/24 16:54 Hydromorphone 0.5 Mg/0.5 Ml Inj IM 06/08/24 16:38 1 mg ONCE ONE Administration Hydromorphone HCl 0.5 mg 06/08/24 17:13 06/08/24 17:35 Hydromorphone 0.5 Mg/0.5 Ml Inj IVP 06/08/24 17:14 0.5 mg ONCE ONE Administration Sodium Chloride 500 mls @ 1,000 mls/hr 06/08/24 17:13 06/08/24 18:10 0.9 % Sodium Chloride 500 Ml IV 06/08/24 17:42 Infused .Q30M ONE Infusion Ketamine HCl 20 mg/ Sodium 100.2 mls @ 200.4 mls/hr 06/08/24 17:58 06/08/24 18:51 Chloride IVPB 06/08/24 17:59 Infused ONCE ONE Infusion Ketorolac Tromethamine 60 mg 06/08/24 16:37 06/08/24 16:53 Ketorolac 60 Mg/2 Ml Inj IM 06/08/24 16:38 60 mg ONCE ONE Administration Lorazepam 0.5 mg 06/08/24 17:14 06/08/24 17:40 Lorazepam 2 Mg/Ml Inj IVP 06/08/24 17:15 0.5 mg ONCE ONE Administration Ondansetron HCl 4 mg 06/08/24 17:02 06/08/24 17:06 Ondansetron Odt 4 Mg Tab PO 06/08/24 17:03 4 mg ONCE ONE Administration Prednisone 60 mg 06/08/24 17:13 06/08/24 17:29 Prednisone 20 Mg Tablet PO 06/08/24 17:14 60 mg ONCE ONE Administration Medical Decision Making MDM Narrative Medical decision making narrative: This seems unlikely to be discogenic. Does seem to be muscle spasm. I would usually associate this with some SI joint dysfunction. Would given tenseness of his abdomen check in for a urinary retention could be causing spasm pain into the back as well. Think will just need to break this cycle. I do not think imaging is necessary as there was no significant trauma. Initially was injected with mg IM Dilaudid and IM ketorolac. Essentially no change in symptoms. Did have some nausea otherwise and is given Zofran for this. Also then given prednisone. Next round another 0.5 mg Dilaudid IV and 0.5 mg lorazepam. Bladder scan without significant urinary retention On reassessment is still with minimal improvement Decide to proceed with pain dose ketamine. Finally on reassessment with less frequent spasming. Feels he might be able to manage now outside of the emergency department. See patient discharge plan for further discussion Gentle stretching. Can take up to 800 mg of ibuprofen up to 1000 mg of acetaminophen per dose. Prescribing [place], prednisone, Flexeril from [facility]. Remember that each tablet of [place] contains 325 mg of acetaminophen. Both Ball [place] and Flexeril tend to be sedating. Do not need to take any more prednisone tonight. Medical Records Medical records reviewed: Yes I reviewed the patient's medical records Discharge Plan Discharge Clinical Impression: Back pain, Muscle spasm Patient Disposition: Home w/ Parent or Adult Condition: Improved Instructions: Acute Low Back Pain (ED), Muscle Spasm (ED), Back Pain (ED) Additional Instructions: Gentle stretching. Can take up to 800 mg of ibuprofen up to 1000 mg of acetaminophen per dose. Prescribing Ball Ground, prednisone, Flexeril from [facility]. Remember that each tablet of [place] contains 325 mg of acetaminophen. Both Ball Ground and Flexeril tend to be sedating. Do not need to take any more prednisone tonight. Prescriptions: No Action methocarbamol 750 mg tablet 750 mg PO Q8H PRN (Reason: muscle spasm) diclofenac sodium 75 mg tablet,delayed release (DR/EC) 75 mg PO BID PRN (Reason: pain) tramadol 50 mg tablet 50 mg PO BID PRN (Reason: pain) Follow Up/Referrals: Dominic Zhou MD [Primary Care Provider] - Stand Alone Forms: [employer] Info Instructions
[2024-06-08] MEDS: KETOROLAC 60 MG/2 ML inj IM (16:53)
[2024-06-08] MEDS: HYDROmorphone 0.5 mg/0.5 ml inj 1 MG IM (16:54)
[2024-06-08] MEDS: ONDANSETRON ODT 4 MG TAB PO (17:06)
[2024-06-08] MEDS: predniSONE 20 MG TABLET 60 MG PO (17:29)
[2024-06-08] MEDS: HYDROmorphone 0.5 mg/0.5 ml inj IVP (17:35)
[2024-06-08] MEDS: 0.9 % SODIUM CHLORIDE 500 ML 500 ML 1000 ML IV (17:35)
[2024-06-08] MEDS: LORazepam 2 MG/ML inj 0.5 MG IVP (17:40)
[2024-06-08] MEDS: KETAMINE 50 MG/0.5 ML 20 MG in 0.9 % SODIUM CHLORIDE 100 ml 100 ML 200.4 MG IVPB (18:14)
[2024-06-08 18:22] VITALS: PULSE 70; O2SAT 89
[2024-06-08 18:30] VITALS: PULSE 69; O2SAT 90
[2024-06-08 18:31] VITALS: BP 126/92; PULSE 66; PULSE 68; O2SAT 90; O2SAT 91
[2024-06-08 18:45] VITALS: PULSE 81; O2SAT 91
== END 2024-06-08 19:08 | disposition home or self-care (01) ==
PROVIDERS: Emergency Provider Family Medicine; PCP Family Medicine
DX: M54.9 Dorsalgia, unspecified (principal); M62.838 Other muscle spasm
CPT/HCPCS: 51798; 94761; 96372; 96374; 96375; 99284; A9270; J1171; J1885; J2060; J3490; J7030; J7512

== ENCOUNTER 2025-04-24 11:48 | Emergency (ER) | payer MEDICARE, BC, SELFPAY ==
[2025-04-24] VITALS (19 sets, daily range): BP systolic 140–247; BP diastolic 84–173; PULSE 51–118; RESP 8–31; TEMP 36.8; O2SAT 91–99
--- OUTSIDE RECORDS SUMMARY | 2025-04-24 11:50 | XMS_ITS | Encounter Summary ---
Author Organization [facility] Address [address] [place] [id number] Care Team Providers Care Marble Worker Name Role Phone Kelly Gallardo, P.A.-C. Primary Care Pro vider Reason for Visit * Reason Onset Date Comments Health Maintenance 03/21/2025 Encounter Details Date Type Department Care Team (Latest Contact Info) Description 03/21/2025 Clinical Communication Department of [facility] in [place], [place] [address] [place] [phone] Kelly Gallardo MPAS, P.A.-C. [address] [place] [phone] Health Maintenance Social History Tobacco Use Types Packs/Day Years Used Date Smoking Tobacco: Never Passive Smoke Exposure: Never Smokeless Tobacco: Never Alcohol Use Standard Drinks/Week Comments Never 0 (1 standard drink = 0.6 oz pur e alcohol) [facility] Utilities Answer Date Recorded In the past 12 months has e Thryve, gas, oil, or water [employer] threatened to shut off services in your home? No 02/24/2024 Hunger Vital Sign Answer Date Recorded Within the past 12 months, y ou worried that your food would run out before you got the money to buy more. Never true 02/24/20 24 Within the past 12 months, t he food you bought just didn't last and you didn't have money to get more. Never true 02/24/2024 PRAPARE - Transportation Answer Date Re corded In the past 12 months, has l ack of transportation kept you from medical appointments or from getting medications? No 02/09 In the past 12 months, has l ack of transportation kept you from meetings, work, or from getting things needed for daily living? No 02/24/2024 Housing Stability Answer Date Recorded What is your living situation today? I have a [facility] place to live 02/24/2024 Sex and Gender Information Value Date Recorded Sex Assigned at Male 02/24/2024 6:10 PM CDT Legal Sex Male 12:13 PM CDT Gender Identity Male 02/24/2024 6:10 PM CDT Sexual Orientation Straight 02/24/2024 6: 10 PM CDT documented as of this encounter Miscellaneous Notes * Telephone Encounter - JoseDee Dee shea - 03/21/2025 8:26 AM CDT I reached out to the patient today via phone call and I was unable to reach the patient. This is the 2nd contact by the [facility] team to schedule preventive care services. The preventive care topics I outreached about include: Annual Wellness Visit Hypertension or BP Visit Physical The outcome of this communication includes: Left Message and Sent Text The PHS team will contact the patient again next time they're due for preventive care. Next Primary Care appointment: does not have a visit scheduled in Primary Care Last appointment with their PCP: 03/02/2024 Additional services offered: None Dee Dee Hawthorne Preventative Health Specialist documented in this encounter Plan of Treatment Not on file documented as of this encounter Visit Diagnoses Not on filedocumented in this encounter Care Teams Marble Worker Relationship Specialty Start Date End Date Kelly Gallardo MPAS, P.A.-C. [address] [place] [phone] PCP - General Internal Medicine 02/21/24 03/25/25 documented as of this encounter
--- OUTSIDE RECORDS SUMMARY | 2025-04-24 11:50 | XMS_ITS | Clinical Summary ---
Author Organization [facility] Address [address] [address] Phone Care Team Providers Care Piano Regulator Name Role Phone Dominic Zhou MD Primary Care Provider [phone] Medications aspirin 325 MG tablet Take 325 mg by mouth one time a day. 4 Active atorvaSTATin (Lipitor) 80 MG tablet Take 80 mg by mouth at bedtime. 4 Active losartan (Cozaar) 25 MG tablet Take 25 mg by mouth one time a day. 4 Active omeprazole (PriLOSEC) 20 MG delayed-release capsule Take 20 mg by mouth two times a day. 3 Active tamsulosin (Flomax) 0.4 MG 24 hour capsule Take 0.8 mg by mouth one time a day. Capsules should be swallowed whole; do not crush, chew, or open Active LORazepam (Ativan) 0.5 mg Tablet Take 0.5 mg by mouth every six hours as needed for Anxiety. Active hydrOXYzine pamoate (Vistaril) 25 MG capsule Take 25 mg by mouth every eight hours as needed for Itching. Active Social History Tobacco Use Types Packs/Day Years Used Date Smoking Tobacco: Never Assessed EH IP Custom IPV Answer Date Recorded Do you feel UNSAFE in any of your personal relationships with your family members or any other acquaintances? No 2023 Sex and Gender Information Value Date Recorded Sex Assigned at Not on file Legal Sex Male 4:13 PM CDT Gender Identity Not on file Sexual Orientation Not on file Last Filed Vital Signs Vital Sign Reading Time Taken Comments Blood Pressure 108/76 01/11/2024 2:00 PM CDT Pulse 73 01/11/2024 2:00 PM CDT Temperature 36.5 C (97.7 F) 01/11/2024 12:32 PM CDT Respiratory Rate 18 01/11/2024 2:00 PM CDT Oxygen Saturation 94% 01/11/2024 2:00 PM CDT Inhaled Oxygen Concentration - - Weight 106.8 kg (235 lb 7.2 oz) 024 12:32 PM CDT Height 180.3 cm (5' 11) 01/11/2024 12: 32 PM CDT Body Mass Index 32.84 01/11/2024 12:32 PM CDT Plan of Treatment Health Maintenance Due Date Last Done Comments CT Colonography 1954 Cologuard 1954 Colonoscopy 1954 Colorectal Cancer Screening 1954 FIT/FOBT 1954 Sigmoidoscopy 1954 PERTUSSIS (Standing Order) 1973 TETANUS (Standing Order) 1973 Pneumococcal Vaccine: 50+ yr s (Standing Order) (1 of 1 - PCV) 2004 Shingrix (Zoster recombinant ) vaccine (Standing Order) (1 of 2) 2004 COVID-19 Vaccine ( - 2023-2 5 season) 2025 Influenza Vaccine Seasonal (Standing Order) (#1) 2025 RSV Vaccination (60+ yrs) (Abrysvo/Arexvy) (1 - 1-dose 75+ series) 2029 HPV Vaccine (Standing Order) Aged Out No longer eligible based on patient's age to complete this topic Hepatitis B Vaccine (Standin g Order) Aged Out No longer eligible b ased on patient's age to complete this topic Insurance MEDICARE COST PART A&B [facility] Commercial Address: [address] [address] [place] [address] Care Teams Piano Regulator Relationship Specialty Start Date End Date Dominic Zhou MD [address] [place] [address] PCP - General Family Medicine 01/11/24
--- OUTSIDE RECORDS SUMMARY | 2025-04-24 11:50 | XMS_ITS | Clinical Summary ---
Author Organization [employer] [facility] Address [address] [place] [id number] Care Team Providers Care Barrel Drum Cutter Name Role Phone [facility] Arnulfo Borrego Unavailable Payal Thornton MD Primary Care Provider + Candis Funes MD Unavailable [phone] Allergies Active Allergy Reactions Criticality Noted Date Comments Oxycodone Anxiety,Agitation,Hallucinations 10/2023 Tramadol Anxiety,Agitation 02/18/2024 Medications aspirin (ECOTRIN) 81 mg enteric coated tabletIndications: History of multiple strokes,Ischemic stroke (HC) Take 1 Tablet by mouth two times daily. Take 1 tablet (81 mg) by mouth twice daily for 90 days 01/31/20 24 Active acetaminophen (TYLENOL EXTRA STRGTH) 500 mg tabletIndications: Pain Take 2 Tablets (1,000 mg) by mouth three times daily. Max acetaminophen dose: 4000mg in 24 hrs. 90 Tablet 5 7:44 PM CONSUMER ANALYST 08/18/19 25 Active sildenafil citrate 100 mg tabletIndications: Erectile dysfunction, unspecified erectile dysfunction type Take 1 Tablet by mouth once daily if needed for Erectile Dysfunction. Take 30min to 4 hours before sexual activity. Max 100mg/24hr. 30 Tablet 10/05/19 25 Active colchicine 0.6 mg capsuleIndications :History of gout Take with flare. Can repeat in 1 hour 0.6mg. (for total of 1.2mg in one day the first day--and only the first day) Ok to take 0.6mg once a day after. Check in one week 20 Capsule 3 01/02/20 25 Active atorvastatin 80 mg tabletIndications: Hyperlipidemia, unspecified hyperlipidemia type Take 1 Tablet (80 mg) by mouth once daily with evening meal. 90 Tablet 3 01/02/20 25 Active diclofenac 75 mg delayed-release tabletIndications: Pain Take 1 Tablet (75 mg) by mouth 2 times daily if needed (pain. take with meals if you take it). 60 Tablet 12 01/02/20 25 Active losartan 25 mg tabletIndications: History of ischemic right MCA stroke Take 1 Tablet (25 mg) by mouth once daily. 90 Tablet 3 01/02/20 25 Active tamsulosin 0.4 mg capsuleIndications :Benign prostatic hyperplasia with nocturia,Benign prostatic hyperplasia, unspecified whether lower urinary tract symptoms present Take 2 Capsules (0.8 mg) by mouth once daily after a meal. 180 Capsule 3 01/02/20 25 Active rOPINIRole (REQUIP) 1 mg tabletIndications: RLS (restless legs syndrome) Take 1 Tablet (1 mg) by mouth at bedtime. 90 Tablet 2 03/24/20 25 Active Active Problems Problem Noted Date Diagnosed Date S/p Left hip incision revisi on DOS 08/23/[address] Simone Esqueda 12/05/2024 s/p left hip incision revisi on by Dr. Simone Esqueda DOS: 08/23/2024 10/10/2024 s/p left hip arthroplasty re vision by Dr. Simone Esqueda DOS: 08/14/2024 09/14/2024 S/P right foot irrigation an d debridement DOS: 06/21/[address] Esqueda 09/13/2024 S/p left hip irrigationa and debridement DOS: 06/29/[address] Lopez 09/13/2024 NSVT (nonsustained ventricular tachycardia) 07/14 Anemia of chronic disease 08/06/2024 SVT (supraventricular tachycardia) 08/06/2024 Sepsis 08/06/2024 Urinary retention 08/06/2024 Left hip prosthetic joint infection 08/06/2024 Back pain 07/25/2024 Muscle spasm 07/25/2024 S/p I&D of right foot DOS 06/21/24 Dr. Simone munson 07/06/2024 At risk for dissatisfaction with healthcare 06/12 Overview (06/30/2024): Patient / his family members very dissatisfied with care delivered at [facility] Polyarticular pseudogout 06/18/2024 Wheezing 06/15/2024 Streptococcal bacteremia 06/15/2024 Infection due to Streptococcus mitis group 06/15 Discitis of thoracolumbar region 06/14/2024 Hyponatremia 06/14/2024 Psoas abscess, right 06/14/2024 Bacterial spinal epidural abscess 06/14/2024 History of ischemic right MCA stroke 2023 EDDIE (acute kidney injury) 06/14/2024 Chronic cough 06/14/2024 Pleuritic chest pain 06/14/2024 Carotid artery aneurysm 03/10/2024 Overview (09/05/2024): Left supraclinoid internal carotid artery aneurysm. This was an incidental finding on CTA head/neck. Outside Neurology consult January 2024. Patient is planning to monitor with surveillance imaging in 1 year with MR brain angiogram. Benign prostatic hyperplasia without urinary obs truction 03/03/2024 Osteoarthritis of ankle 03/02/2024 Restless leg syndrome 03/02/2024 Primary hypertension 12/14/2023 Weakness 12/09/2023 RAD (reactive airway disease) 09/12/2021 Pain medication agreement broken 01/08/2016 Degeneration of intervertebral disc of lumbar re gion 10/18/2014 Right ankle pseudogout 10/18/2014 Prostatic hypertrophy 01/18/2013 Overview (01/18/2013): Since 2008 H/O prostate cancer 01/18/2013 Umbilical hernia 01/18/2013 Overview (01/18/2013): This has been present since age 45. Resolved Problems Problem Noted Date Diagnosed Date Resolved Date s/p left hip arthroplasty re vision by Dr. Simone Esqueda DOS: 08/14/2024 08/15/2024 History of CVA (cerebrovascular accident) 08/10/2024 08/12/2024 Discitis 06/15/2024 07/01/2024 Staphylococcus aureus bacteremia 06/14/2024 08/06/2024 Positive blood cultures 06/14/2024 1207/2023 Staphylococcal arthritis of right ankle 06/14/2024 08/06/2024 Fever and chills 06/14/2024 07/01/2024 Personal history of transien t ischemic attack (TIA), and cerebral infarction without residual deficits 03/02/2024 09/05/2024 Personal history of malignan t neoplasm of prostate 03/02/2024 09/05/2024 Ischemic stroke 12/14/2023 08/06/2024 Elevated blood pressure reading 12/09/2023 08/06/2024 High risk medication use 02/21/202107/2024 Pain medication agreement 09/16/2015 Overview (04/20/2025): Diagnosis Code replaced due to regulatory update Encounters Date Type Department Care Team Description 04/18/2025 10:55 AM CDT Office Visit [facility] [address] [facility] [address] [place] [address] Candis Funes MD Consult (Hyponatremia) 04/18/2025 Travel 04/13/2025 Travel 04/04/2025 10:00 AM CDT Ancillary Procedure [facility] [address] [facility] [address] [place] [address] 04/04/2025 9:00 AM CDT Ancillary Procedure [facility] [address] [facility] [address] [place] [address] 04/04/2025 Travel 03/30/2025 Travel 03/22/2025 Refill [facility] [address] [place] [address] [place] [address] Payal Thornton MD Refill Request (Ropinirole) 03/02/2025 12:00 PM CDT Office Visit [facility] [address] [facility] [address] [place] [address] Payal Thornton MD Follow Up 03/02/2025 Travel 02/27/2025 Travel 02/12/2025 Telephone [facility] [address] [place] [address] Payal Thornton MD 01/22/2025 Telephone [facility] [address] [facility] [address] [place] [address] Tao Dobbs MD Form ([place] Form) from Last 3 Months Immunizations Immunization Administration Dates Next Due COVID-19 vaccine (Moderna 100mcg/0.5mL) PF, MDV 10/14/2020,09/16/2020 COVID-19 vaccine (Moderna Demarco anton 50mcg/0.25mL) PF, MDV 05/15/2021 Influenza, Inactivated IIV3 (Age 65+ Years) Preserv Free 06/27/2024() Tdap 04/25/2008 Family History Medical History Relation Name Comments Cancer-prostate Brother half brother Lupus Brother of sepsis? at 81 Heart Disease Father of a [place] a t 71 Hypertension Father Stroke Father Cancer Mother lung of this 68 Cancer-breast Sister Celiac disease Son Drew Relation Name Status Comments Brother Father Mother lung Sister Alive Son Drew Alive Social History Tobacco Use Types Packs/Day Years Used Date Smoking Tobacco: Never Passive Smoke Exposure: Never Smokeless Tobacco: Never Tobacco Cessation:Counseling Given: Yes Alcohol Use Standard Drinks/Week Comments No 0 (1 standard drink = 0.6 oz pur e alcohol) PHQ-2 Answer Date Recorded PHQ-2 TOTAL SCORE 0 10/26/2024 Social Connections Answer Date Recorded Do you often feel lonely or isolated from those around you? 0 08/22/2024 Financial Resource Strain Answer Date R ecorded Difficulty of Paying Living Expenses 3 06/14/2024 Difficulty of Paying Living Expenses Not on file 06/14/2024 Food Insecurity Answer Date Recorded Do you worry your food will run out before you are able to buy more? 1 08/22/2024 Transportation Needs Answer Date Record ed Does lack of transportation keep you from medica l appointments? 1 08/22/2024 Does lack of transportation keep you from work, meetings or getting things that you need? 1 08/22/2024 Housing Stability Answer Date Recorded What is your housing situation today? 1 08/22/2024 Interpersonal Safety Answer Date Record ed Are you being hit, kicked, p ushed or yelled at (see row info)? No 08/22/2024 Interpersonal Safety Abuse 12 - 18 Not on file 08/22/2024 Interpersonal Safety Ambulatory Vulnerability No t on file 08/22/2024 Utilities Answer Date Recorded Do you have trouble paying f or utilities (for example, heat, electricity, water, phone)? 1 08/22/2024 Sex and Gender Information Value Date Recorded Sex Assigned at Not on file Legal Sex Male 10:57 AM CDT Gender Identity Not on file Sexual Orientation Not on file Occupation Industry Job Start Date Job End Date [employer] Not on file Not on file Not on file Obstetrics History Last Filed Vital Signs Vital Sign Reading Time Taken Comments Blood Pressure 178/108 04/18/2025 10:59 AM CDT Pulse 57 04/18/2025 10:55 AM CDT Temperature 36.7 C (98 F) 10/20/2024 9:54 AM CDT Respiratory Rate 20 11/21/2024 9:42 AM CDT Oxygen Saturation 99% 04/18/2025 10:55 AM CDT Inhaled Oxygen Concentration - - Weight 103.4 kg (228 lb) 04/18/2025 10:55 AM CDT Height 175.3 cm (5' 9) 01/01/2025 12:35 PM CDT Body Mass Index 33.67 01/01/2025 12:35 PM CDT Plan of Treatment Upcoming Encounters Date Type Department Care Team (Late st Contact Info) Description 05/21/2025 3:55 PM CONSUMER ANALYST Office Visit [facility] [address] [address] [place] [address] [place] [address] Health Maintenance Due Date Last Done Comments Pneumococcal series for age 50+ (1 of 2 - PCV) 1973 Zoster (shingles) series for age 50+ (1 of 2) 2004 RSV vaccine for adults or (1 - Risk 60-74 years 1-dose series) 2014 Tetanus booster 04/25/2018 04/25/2008 COVID-19 vaccine series (2024- season) 2025 05/15/2021, 10/14/2020, 09/16/2020 Influenza Vaccine (#1) 2025 Fecal testing non-DNA (FIT,FOBT,iFOBT) for age 45-75 09/29/2025 09/29/2024, 04/17/2022, 05/08/2020, Additional history exists Depression screening for age 12+ 10/27/2025 10/27/2024, 10/27/2024, 10/27/2024, Additional history exists Medicare Wellness for age 65+ 10/27/2025 10/26/2024, 04/21/2023, 09/12/2021, Additional history exists BMI (ht and wt on same day) for age 18+ 01/01/2026 01/01/2025, 01/31/2024, 04/21/2023, Additional history exists Lipids for age 45-75 01/01/2030 01/01/2025, 01/27/2024, 09/06/2020, Additional history exists Hepatitis C screening for age 18-79 Completed 07/03/2024, 05/12/2017 Hepatitis B series for 19+ Aged Out N o longer eligible based on patient's age to complete this topic Medical Devices Implanted Type Area Senior Air Director Device Identifier Shelf Expiration Date Model / Serial / Lot Acetabular Liner Altrx Implanted:Qty: 1 on 08/14/2024 by Simone Esqueda MD at [facility] Left: Hip 09/08/2028 4 / / [id number] Description:HEDRON L Spacer, 18x50, 13mm, 10 Graft Bone 10ml Cerament G W/Gentamicin - [id number] Implanted:Qty: 1 on 08/14/2024 by Simone Esqueda MD at [facility] Left: Hip [employer] 10/09/2026 [id number] / / [id number] Femoral Head Biolox Delta Implanted:Qty: 1 on 08/14/2024 by Simone Esqueda MD at [facility] Left: Hip 11/08/2028 0 / / [id number] Description:FEMORAL HEAD BIO LOX DELTA Explanted Type Area Senior Air Director Device Identifier Shelf Expiration Date Model / Serial / Lot Explant Explanted:Qty: 1 on 08/14/2024 by Simone Esqueda MD at [facility] Left: Hip Description:HEAD, LINER, SCR EW Procedures Procedure Name Priority Date/Time Associated Diagnosis Comments TSH Routine 04/18/2025 11:59 AM CDT Hyponatremia SODIUM,RANDOM URINE Routine 04/18/2025 11:59 AM CDT Hyponatremia POTASSIUM,RANDOM URINE Routine 11:59 AM CDT Hyponatremia OSMOLALITY,URINE Routine 04/18/2025 11:59 AM CDT Hyponatremia URIC ACID Routine 04/18/2025 11:59 AM CDT Hyponatremia OSMOLALITY Routine 04/18/2025 11:59 AM CDT Hyponatremia ADRENOCORTICOTROPIC HORMONE (ACTH) PLASMA Routine 04/18/2025 11:59 AM CDT Hyponatremia CORTISOL TOTAL Routine 04/18/2025 11:59 AM CDT Hyponatremia CTA CHEST - CV DUAL READ Routine 025 10:09 AM CDT Ascending aortic aneurysm, unspecified whether ruptured CTA CHEST - RAD DUAL READ Routine 2024 10:09 AM CDT Ascending aortic aneurysm, unspecified whether ruptured ECHO TTE COMPLETE WO CONTRAST Routine 04/04/2025 9:31 AM CDT Ascending aortic aneurysm, unspecified whether ruptured CBC WITH AUTO DIFFERENTIAL Routine 03/02/2025 12:34 PM CDT Iron deficiency anemia due to chronic blood loss CBC WITH AUTO DIFFERENTIAL Routine 03/02/2025 12:34 PM CDT Iron deficiency anemia due to chronic blood loss COMP METABOLIC PANEL Routine 03/02/2025 12:34 PM CDT Hyponatremia LIPID PANEL Routine 01/01/2025 1:21 PM CDT Hyperlipidemia, unspecified hyperlipidemia type OCCULT BLOOD IFOBT STOOL Routine 025 10:00 PM CDT Screening for colon cancer ACUTE HEPATITIS PANEL CHRIS 07/03/2024 9:41 AM CONSUMER ANALYST from Last 3 Months or Most Recently Relevant to Health Maintenance Results * CORTISOL TOTAL (04/18/2025 11:59 AM CDT) CORTISOL, TOTAL 6.1 mcg/dL 4:12 AM CDT [facility] Comment: The Cortisol result may be decreased on average 10-20% relative to results previously obtained with this method due to a recent quality improvement made in February 2025 by the reagent sock drier. Reference Range: For 8 a.m.(7-9 a.m.) Specimen: 4.0-22.0 Reference Range: For 4 p.m.(3-5 p.m.) Specimen: 3.0-17.0 * Please interpret above results accordingly * Blood BLOOD SPECIMEN / Unknown [facility] / Unknown 04/18/2025 11:59 AM CDT 04/18/2025 12:00 PM CDT us Candis Funes MD CHEMISTRY Final Result [facility] [address] [place] [address], * ADRENOCORTICOTROPIC HORMONE (ACTH) PLASMA (04/18/2025 11:59 AM CDT) ACTH, PLASMA 24 6 - 50 pg/mL 04/21/2025 10:52 PM CDT [facility] Comment: Reference range applies only to the specimens collected between 7am-10am. Blood BLOOD SPECIMEN / Unknown [facility] / Unknown 04/18/2025 11:59 AM CDT 04/18/2025 12:00 PM CDT us Candis Funes MD SEND OUTS Final Result Performing Organization Address [facility]/ZIP Co de Phone Number [facility] [address] [address], [place] [phone] * (ABNORMAL) TSH (04/18/2025 11:59 AM CDT) TSH 0.37(L) 0.40 - 4.50 mIU/L 04/19/2025 4:05 AM CDT [facility] Blood BLOOD SPECIMEN / Unknown [facility] / Unknown 04/18/2025 11:59 AM CDT 04/18/2025 12:00 PM CDT us Candis Funes MD CHEMISTRY Final Result Performing Organization Address [facility] Co de Phone Number [facility] [address] [address], [place] [phone] * SODIUM,RANDOM URINE (04/18/2025 11:59 AM CDT) SODIUM,RANDOM URINE 48 mmol/L 04/18/2025 7:28 PM CDT [facility] Comment:No Reference Range D efined. Urine URINE SPECIMEN / Unknown Non-Blood / Unknown 04/18/2025 11:59 AM CDT 04/18/2025 12:00 PM CDT us Candis Funes MD URINE Final Result Performing Organization Address [facility]/ZIP Co de Phone Number [facility] [address] [place] [address], [place] * POTASSIUM,RANDOM URINE (04/18/2025 11:59 AM CDT) POTASSIUM,RAND OM UR 33.8 mmol/L 04/19/2025 7:07 AM CDT [facility] Comment:No Reference Range D efined. Urine URINE SPECIMEN / Unknown Non-Blood / Unknown 04/18/2025 11:59 AM CDT 04/18/2025 12:00 PM CDT us Candis Funes MD URINE Final Result [facility] [address] [place] [address], * URIC ACID (04/18/2025 11:59 AM CDT) URIC ACID 5.2 4.0 - 8.0 mg/dL 04/19/2025 4:48 AM CDT [facility] Comment:Therapeutic target f or gout patients: <6.0 mg/dL Blood BLOOD SPECIMEN / Unknown [facility] / Unknown 04/18/2025 11:59 AM CDT 04/18/2025 12:00 PM CDT us Candis Funes MD CHEMISTRY Final Result [facility] [address] [address], * OSMOLALITY,URINE (04/18/2025 11:59 AM CDT) OSMOLALITY,URI NE 388 50 - 1,400 mOsmol/kg 04/18/2025 6:25 PM CDT [facility] Urine URINE SPECIMEN / Unknown Non-Blood / Unknown 04/18/2025 11:59 AM CDT 04/18/2025 12:00 PM CDT us Candis Funes MD URINE Final Result [facility] [address] [place] [address], [place] * (ABNORMAL) OSMOLALITY (04/18/2025 11:59 AM CDT) OSMOLALITY (SERUM) 276(L) 278 - 305 mOsm/kg 04/21/2025 8:30 AM CDT [facility] Blood BLOOD SPECIMEN / Unknown [facility] / Unknown 04/18/2025 11:59 AM CDT 04/18/2025 12:00 PM CDT us Candis Funes MD CHEMISTRY Final Result [facility] [address] [address], * CTA CHEST - CV DUAL READ (04/04/2025 10:09 AM CDT) Anatomical Region Laterality Modality CHEST Computed Tomogra phy Impressions 04/04/2025 2:16 PM CDT See separate radiology report for non-cardiac findings. Moderate ascending aortic enlargement. 43 x 44 mm. Index 8.2 cm2/m. Moderate aortic root enlargement to maximal 44 mm dimension. Index 7.7 cm2/m. Trileaflet aortic valve anatomically. Please see separate radiology report for review of noncardiovascular structures. FINDINGS: The aortic root is moderately dilated, measuring 42 x 42 x 44 mm in [id number]-az-gudo measurements. Index is 7.7 cm2/m. The aortic valve is anatomically trileaflet. The ascending aorta is also moderately dilated at 43 x 44 mm. The index is 8.2 cm2/m. ADDITIONAL FINDINGS: The head and neck vessels show normal branch vessel anatomy. There is moderate calcification without severe stenosis. The arch and descending thoracic aorta have moderate calcification. The suprarenal abdominal aorta is visualized. There is a normal takeoff and branching pattern of the celiac trunk and superior mesenteric axis. There is moderate calcification of the celiac trunk without stenosis. Similarly, the proximal renal arteries have calcification without severe stenosis. There is moderate coronary arterial calcification, particularly of the proximal LAD noted. Ford Hernandez MD MCN/car Narrative 04/04/2025 2:16 PM CDT Results are automatically released to your [employer] ([employer]) account once available, in compliance with federal regulations. This means that you may see your results before your provider has had a chance to review them. Please allow 2-3 business days for your provider to comment on the results. THIS IS THE CARDIOLOGY REPORT OF A DUAL READ STUDY. READ THE SEPARATE RADIOLOGY REPORT FOR POTENTIAL INCIDENTAL FINDINGS. REPORTS MAY BE FINALIZED AT DIFFERENT TIMES. STUDY: CTA OF THE CHEST, 04/04/2025 STUDY PARAMETERS: Contrast used: 80 cc Omnipaque 350; no premedications given; scan protocol is FLASH; total DLP 233; Siemens SOMATOM Force [address] INDICATIONS: Ascending aortic aneurysm. PERIPHERAL RISK FACTORS: Diabetes: No. SCAN QUALITY: Good. us Bethany TEJEDA CT Final Res ult * CTA CHEST - RAD DUAL READ (04/04/2025 10:09 AM CDT) Anatomical Region Laterality Modality CHEST Computed Tomogra phy 04/05/2025 5:01 AM CDT Impressions 04/05/2025 5:01 AM CDT : 1. See separate cardiology report for cardiac findings. 2. No acute pulmonary findings. Please note that all CT scans at this facility use dose modulation, iterative reconstruction and/or weight-based dosing when appropriate to reduce radiation dose to as low as reasonably achievable. Please note that all CT scans at this facility use dose modulation, iterative reconstruction, and/or weight-based dosing when appropriate to reduce radiation dose to as low as reasonably achievable. Dictated by Ceci Garcia MD @ 04/05/2025 5:01:16 AM (Electronically Signed) Narrative 04/05/2025 5:01 AM CDT For Patients: As a result of the 21st Century Cures Act, medical imaging exams and procedure reports are released immediately into your electronic medical record. You may view this report before your referring provider. If you have questions, please contact your health care provider. THIS IS THE RADIOLOGY OVER READ REPORT OF A DUAL READ STUDY. READ THE SEPARATE CARDIOLOGY REPORT FOR CARDIOVASCULAR FINDINGS. REPORTS MAY BE FINALIZED AT DIFFERENT TIMES. : COMPARISON: : CT 08/06/2024 TECHNIQUE: : Please see cardiology report for technical information. This exam is being performed in conjunction with the services provided by the [facility] ([facility]). INDICATION: Cardiac over-read. FINDINGS: Lungs are clear. No acute findings in the upper abdomen. Procedure Note Ceci Garcia MD - 04/05/2025 For Patients: As a result of the Cures Act, medical imagingexams and procedure reports are released immediately into your electronicmedical record. You may view this report before your referring provider.If you have questions, please contact your health care provider. THIS IS THE RADIOLOGY OVER READ REPORT OF A DUAL READ STUDY. READ THESEPARATE CARDIOLOGY REPORT FOR CARDIOVASCULAR FINDINGS. REPORTS MAY BEFINALIZED AT DIFFERENT TIMES. : COMPARISON: : CT 08/06/2024 TECHNIQUE: : Please see cardiology report for technical information. This exam is being performed in conjunction with the services provided bythe [facility] ([facility]). INDICATION: Cardiac over-read. FINDINGS: Lungs are clear. No acute findings in the upper abdomen. IMPRESSION: : 1. See separate cardiology report for cardiac findings. 2. No acute pulmonary findings. Please note that all CT scans at this facility use dose modulation,iterative reconstruction and/or weight-based dosing when appropriate toreduce radiation dose to as low as reasonably achievable. Please note that all CT scans at this facility use dose modulation,iterative reconstruction, and/or weight-based dosing when appropriate toreduce radiation dose to as low as reasonably achievable. Dictated by Ceci Garcia MD @ 04/05/2025 5:01:16 AM (Electronically Signed) us Bethany TEJEDA CT Final Res ult * ECHO TTE COMPLETE WO CONTRAST (04/04/2025 9:31 AM CDT) AORTIC VALVE MEAN PG 4 mmHg EJECTION FRACTION 54 % LVEDD 4.3 cm EJECTION FRACTION 55 - 60% Anatomical Region Laterality Modality Ultrasound 04/04/2025 8:53 AM CDT Narrative 04/04/2025 10:31 AM CDT ECHOCARDIOGRAM STARR VENCES : 1955 70 years Study Date: 04/04/2025 8:53:10 AM Gender: M BP: 146/84 mmHg Height: 175.26 cm BSA: 2.19 m Weight: 104.33 kg Tech: DEQUAN Referring MD: BETHANY BELLO Site: [facility] Reading Location: [facility] Patient Location: Outpatient. Procedure: 2D, Color Doppler and Spectral Doppler. Indication for study: Ascending aortic aneurysm Cardiac Rhythm: Sinus bradycardia and with premature atrial contractions.Study quality: Good. Final Impressions: 1. Normal left ventricular size, mildly increased wall thickness, low normal global systolic function, calculated EF of 54 %. 2. Grade 2 pattern of LV diastolic filling. Severely enlarged left atrium. 3. Right ventricular cavity size is normal, global systolic RV function is low normal. 4. The mitral valve is sclerotic, mild mitral regurgitation. 5. Dilated ascending aorta, diameter of 4.6 cm (upper limit of normal for age, sex, and BSA is 4.3 cm*), Height Index 2.62. 6. Dilated sinus of Valsalva, diameter of 4.4 cm (upper limit of normal for age, sex, and BSA is 4.2 cm*), Height Index 2.51 cm/m. 7. The inferior vena cava is dilated, respiratory size variation greater than 50%. Estimated RA pressure 8 mmHg. Comparison Compared to TTE from 06/15/2024, aortic measurements are similar (prior ascending 4.7 cm, aortic root 4.3 cm). Chamber Sizes and Function Normal left ventricular size, mildly increased wall thickness, low normal global systolic function, calculated EF of 54 %. No resting regional wall motion abnormality visualized. Left atrial size is severely enlarged. Right ventricular cavity size is normal, global systolic RV function is normal. RV wall thickness is normal. The right atrium is normal. The pulmonary artery is of normal size and origin. The sinus of Valsalva is dilated. The ascending aorta is dilated. Valves, RV Pressures and Diastolic Function The aortic valve is normal in structure and trileaflet, no stenosis and no regurgitation. The mitral valve is sclerotic, mild mitral regurgitation. Spectral Doppler shows Grade 2 pattern of LV diastolic filling. The tricuspid valve is normal in structure, trace tricuspid regurgitation. The pulmonic valve is normal. Trace pulmonary regurgitation. Masses, Effusion, Shunts There is no pericardial effusion. The inferior vena cava is dilated, respiratory size variation greater than 50%. No left to right shunting was detected by limited color flow Doppler interrogation of the interatrial septum. MEASUREMENTS AND CALCULATIONS 2-D Measurements and LV Function: LVID (d) 4.3 cm Planimetered EF 54 % LVID (s) 2.8 cm LV FS% (2D) 35 % IVS (d) 1.2 cm LVOT diameter 2.5 cm LVPW (d) 1.0 cm HR 56 bpm Ao Sinus 4.4 cm LA Vol index 54 ml/m2 Ao Sinus ULN 4.2 cm * RV Basal Diam 3.4 cm Asc Ao 4.6 cm Asc Ao ULN 4.3 cm * * Input BSA outside of range, reported values correspond to BSA = 2.1 Diastology: Mitral Tissue Doppler E Peak 0.9 m/s e', Septum 0.06 m/s A Peak 0.6 m/s e', Lateral 0.09 m/s E/A 1.4 E/e' Average 12.33 DT 236 msec Aortic Valve: Vmax 1.2 m/s ELVIRA (V) 3.21 cm VTI 0.29 m ELVIRA (I) 3.06 cm LVOT V max 0.8 m/s Max PG 6 mmHg LVOT VTI 0.18 m Mean PG 4 mmHg SV 89 ml Dim Index 0.62 SV index 41 ml/m CO 5.0 l/min CI 2.3 l/min/m Mitral Valve: MVA 3.2 cm MV P 1/2 68 msec Tricuspid Valve and estimated PA pressures: TAPSE 1.7 cm . This study was interpreted by an [facility] accredited facility. Final Procedure Note Pavan Shabazz MD - 04/04/2025 ECHOCARDIOGRAM STARR VENCES : 1955 70 years Study Date: 04/04/2025 8:53:10 AM Gender: M BP: 146/84 mmHg Height: 175.26 cm BSA: 2.19 m Weight: 104.33 kg Tech: DEQUAN Referring MD: BETHANY BELLO Site: [facility] Reading Location: [facility] Patient Location: Outpatient. Procedure: 2D, Color Doppler and Spectral Doppler. Indication for study: Ascending aortic aneurysm Cardiac Rhythm: Sinus bradycardia and with premature atrialcontractions.Study quality: Good. Final Impressions: 1. Normal left ventricular size, mildly increased wall thickness, lownormal global systolic function, calculated EF of 54 %. 2. Grade 2 pattern of LV diastolic filling. Severely enlarged leftatrium. 3. Right ventricular cavity size is normal, global systolic RV functionis low normal. 4. The mitral valve is sclerotic, mild mitral regurgitation. 5. Dilated ascending aorta, diameter of 4.6 cm (upper limit of normal forage, sex, and BSA is 4.3 cm*), Height Index 2.62. 6. Dilated sinus of Valsalva, diameter of 4.4 cm (upper limit of normalfor age, sex, and BSA is 4.2 cm*), Height Index 2.51 cm/m. 7. The inferior vena cava is dilated, respiratory size variation greaterthan 50%. Estimated RA pressure 8 mmHg. Comparison Compared to TTE from 06/15/2024, aortic measurements are similar (priorascending 4.7 cm, aortic root 4.3 cm). Chamber Sizes and Function Normal left ventricular size, mildly increased wall thickness, low normalglobal systolic function, calculated EF of 54 %. No resting regional wallmotion abnormality visualized. Left atrial size is severely enlarged.Right ventricular cavity size is normal, global systolic RV function isnormal. RV wall thickness is normal. The right atrium is normal. Thepulmonary artery is of normal size and origin. The sinus of Valsalva isdilated. The ascending aorta is dilated. Valves, RV Pressures and Diastolic Function The aortic valve is normal in structure and trileaflet, no stenosis and noregurgitation. The mitral valve is sclerotic, mild mitral regurgitation.Spectral Doppler shows Grade 2 pattern of LV diastolic filling. Thetricuspid valve is normal in structure, trace tricuspid regurgitation. Thepulmonic valve is normal. Trace pulmonary regurgitation. Masses, Effusion, Shunts There is no pericardial effusion. The inferior vena cava is dilated,respiratory size variation greater than 50%. No left to right shunting wasdetected by limited color flow Doppler interrogation of the interatrialseptum. MEASUREMENTS AND CALCULATIONS 2-D Measurements and LV Function: LVID (d) 4.3 cm Planimetered EF 54% LVID (s) 2.8 cm LV FS% (2D) 35% IVS (d) 1.2 cm LVOT diameter2.5 cm LVPW (d) 1.0 cm HR 56bpm Ao Sinus 4.4 cm LA Vol index 54ml/m2 Ao Sinus ULN 4.2 cm * RV Basal Diam3.4 cm Asc Ao 4.6 cm Asc Ao ULN 4.3 cm * * Input BSA outside of range, reported values correspond to BSA = 2.1 Diastology: Mitral Tissue Doppler E Peak 0.9 m/s e', Septum 0.06 m/s A Peak 0.6 m/s e', Lateral 0.09 m/s E/A 1.4 E/e' Average 12.33 DT 236 msec Aortic Valve: Vmax 1.2 m/s ELVIRA (V) 3.21 cm VTI 0.29 m ELVIRA (I) 3.06 cm LVOT V max 0.8 m/s Max PG 6 mmHg LVOT VTI 0.18 m Mean PG 4 mmHg SV 89 ml Dim Index 0.62 SV index 41 ml/m CO 5.0 l/min CI 2.3 l/min/m Mitral Valve: MVA 3.2 cm MV P 1/2 68 msec Tricuspid Valve and estimated PA pressures: TAPSE 1.7 cm . This study was interpreted by an [facility] accredited facility. Final us Bethany TEJEDA ECHO ORD Final Res ult * (ABNORMAL) CBC WITH AUTO DIFFERENTIAL (03/02/2025 12:34 PM CDT) Pathologist [facility] WHITE BLOOD CELL COUNT 5.7 3.8 - 10.8 Thousand/u L 03/02/2025 1:10 PM CDT [facility] RED BLOOD CELL COUNT 3.86(L) 4.20 - 5.80 Million/uL 03/02/2025 1:10 PM CDT [facility] HEMOGLOBIN 11.4(L) 13.2 - 17.1 g/dL 03/02/2025 1:10 PM CDT [facility] HEMATOCRIT 34.5(L) 38.5 - 50.0 % 03/02/2025 1:10 PM CDT [facility] MCV 89.4 80.0 - 100.0 fL 03/02/2025 1:10 PM CDT [facility] MCH 29.5 27.0 - 33.0 pg 03/02/2025 1:10 PM CDT [facility] MCHC 33.0 32.0 - 36.0 g/dL 03/02/2025 1:10 PM CDT [facility] Comment: For adults, a slight decrease in the calculated MCHC value (in the range of 30 to 32 g/dL) is most likely not clinically significant; however, it should be interpreted with caution in correlation with other red cell parameters and the patient's clinical condition. RDW 14.0 11.0 - 15.0 % 03/02/2025 1:10 PM CDT [facility] PLATELET COUNT 184 140 - 400 Thousand/u L 03/02/2025 1:10 PM CDT [facility] MPV 10.0 7.5 - 12.5 fL 03/02/2025 1:10 PM CDT [facility] NEUTROPHILS 58.6 % 03/02/2025 1:10 PM CDT [facility] LYMPHOCYTES 27.1 % 03/02/2025 1:10 PM CDT [facility] MONOCYTES 10.8 % 03/02/2025 1:10 PM CDT [facility] EOSINOPHILS 2.8 % 03/02/2025 1:10 PM CDT [facility] BASOPHILS 0.7 % 03/02/2025 1:10 PM CDT [facility] ABSOLUTE NEUTROPHILS 3340 1500 - 7800 cells/uL 03/02/2025 1:10 PM CDT [facility] ABSOLUTE LYMPHOCYTES 1545 850 - 3900 cells/uL 03/02/2025 1:10 PM CDT [facility] ABSOLUTE MONOCYTES 616 200 - 950 cells/uL 03/02/2025 1:10 PM CDT [facility] ABSOLUTE EOSINOPHILS 160 15 - 500 cells/uL 03/02/2025 1:10 PM CDT [facility] ABSOLUTE BASOPHILS 40 0 - 200 cells/uL 03/02/2025 1:10 PM CDT [facility] Blood BLOOD SPECIMEN / Unknown [facility] / Unknown 03/02/2025 12:34 PM CDT 03/02/2025 12:35 PM CDT us Payal Thornton MD HEMATOLOGY Final Re sult [facility] [address] [address], [facility] [address] [place] [address], [address] [place] [address] * (ABNORMAL) COMP METABOLIC PANEL (03/02/2025 12:34 PM CDT) SODIUM 130(L) 135 - 146 mmol/L 03/03/2025 3:48 AM CDT [facility] POTASSIUM 4.5 3.5 - 5.3 mmol/L 03/03/2025 3:48 AM CDT [facility] CHLORIDE 98 98 - 110 mmol/L 03/03/2025 3:48 AM CDT [facility] CARBON DIOXIDE 25 20 - 32 mmol/L 03/03/2025 3:48 AM CDT [facility] GLUCOSE 92 65 - 99 mg/dL 03/03/2025 3:48 AM CDT [facility] Comment: Fasting reference interval CALCIUM 9.2 8.6 - 10.3 mg/dL 03/03/2025 3:48 AM CDT [facility] CREATININE 0.84 0.70 - 1.28 mg/dL 03/03/2025 3:48 AM CDT [facility] BUN/CREATININE RATIO 32(H) 6 - 22 (calc) 03/03/2025 3:48 AM CDT [facility] EGFR 94 > OR = 60 mL/min/1.7 3m2 03/03/2025 3:48 AM CDT [facility] ALBUMIN 4.2 3.6 - 5.1 g/dL 03/03/2025 3:48 AM CDT [facility] PROTEIN, TOTAL 7.1 6.1 - 8.1 g/dL 03/03/2025 3:48 AM CDT [facility] BILIRUBIN, TOTAL 0.8 0.2 - 1.2 mg/dL 03/03/2025 3:48 AM CDT [facility] ALKALINE PHOSPHATASE 126 35 - 144 U/L 03/03/2025 3:48 AM CDT [facility] ALT 35 9 - 46 U/L 03/03/2025 3:48 AM CDT [facility] AST 32 10 - 35 U/L 03/03/2025 3:48 AM CDT [facility] UREA NITROGEN (BUN) 27(H) 7 - 25 mg/dL 03/03/2025 3:48 AM CDT [facility] GLOBULIN 2.9 1.9 - 3.7 g/dL (calc) 03/03/2025 3:48 AM CDT [facility] ALBUMIN/GLOBULIN RATIO 1.4 1.0 - 2.5 (calc) 03/03/2025 3:48 AM CDT [facility] Blood BLOOD SPECIMEN / Unknown [facility] / Unknown 03/02/2025 12:34 PM CDT 03/02/2025 12:35 PM CDT us Payal Thornton MD CHEMISTRY Final Re sult [facility] [place] [address] [place] [address], * LIPID PANEL (01/01/2025 1:21 PM CDT) CHOLESTEROL, TOTAL 106 <200 mg/dL [facility] HDL CHOLESTEROL 44 > OR = 40 mg/dL [facility] TRIGLYCERIDES 82 <150 mg/dL [facility] LDL-CHOLESTEROL 46 mg/dL (calc) [facility] Comment: Reference range: <100 Desirable range <100 mg/dL for primary prevention; <70 mg/dL for patients with CHD or diabetic patients with > or = 2 CHD risk factors. LDL-C is now calculated using the Charles-Isbell calculation, which is a validated novel method providing better accuracy than the Friedewald equation in the estimation of LDL-C. Charles SS et al. ARIANNA. 2013;310(19): 7951-9110 (http://education.Paxata/faq/WFR448) CHOL/HDLC RATIO 2.4 <5.0 (calc) [facility] NON HDL CHOLESTEROL 62 <130 mg/dL (calc) [facility] Comment: For patients with diabetes plus 1 major ASCVD risk factor, treating to a non-HDL-C goal of <100 mg/dL (LDL-C of <70 mg/dL) is considered a therapeutic option. Blood BLOOD SPECIMEN / Unknown 01/01/2025 1:21 PM CDT 01/01/2025 1:23 PM CDT Narrative [facility] - 01/02/2025 4:26 AM CDT MULTIPLE TESTING PRIORITIES; ROUTINE TESTING TO FOLLOW. Payal Thornton MD CHEMISTRY Final Re sult [facility] [address] [place] [address], [employer] [address] * OCCULT BLOOD IFOBT STOOL (09/29/2024 10:00 PM CDT) Pathologist [facility] STOOL BLOOD ,IFOBT Negative Negative 10/04/2024 3:24 PM CDT [facility] Stool STOOL SPECIMEN / Unknown Non-Blood / Unknown 09/29/2024 10:00 PM CDT 10/03/2024 9:30 PM CDT Payal Thornton MD LABORATORY Final Re sult [facility] [address] [place] [address], * ACUTE HEPATITIS PANEL (07/03/2024 9:41 AM CONSUMER ANALYST) HEPATITIS C ANTIBODY Non-Reactive Non-Reactive 07/03/2024 2:27 PM CONSUMER ANALYST [facility] Comment:Please note, per www .CDC.gov: If a patient is known to be at high risk of HCV infection, or is symptomatic, and the physician's suspicion of HCV infection is high, HCV RNA testing is often employed and is of diagnostic value, even after an initial negative anti-HCV test result. IGM ANTI HAV Non-Reactive Non-Reactive 07/03/20 2:27 PM CONSUMER ANALYST [facility] Comment:Anti-HAV IgM non-felisha ctive. Does not exclude the possibility of exposure to/or infection with HAV. Level of anti-HAV IgM may be below the cut-off in early infection. HBSAG Nonreactive Nonreactive 07/03/2024 2:27 PM CONSUMER ANALYST [facility] IGM ANTI HBC Non-Reactive Non-Reactive 07/03/20 2:27 PM CONSUMER ANALYST [facility] Comment:Anti-HBc IgM not det ected. Does not exclude the possibility of exposure to or infection with HBV. Blood BLOOD SPECIMEN / Unknown Venipuncture / Unknown 07/03/2024 9:41 AM CONSUMER ANALYST 07/03/2024 10:02 AM CONSUMER ANALYST Narrative [facility] - 07/03/2024 2:27 PM CONSUMER ANALYST Biotin supplements may cause clinically significant interference for this test assay. If interference is suspected, it is strongly recommended that biotin is discontinued for at least one week prior to retesting. Heavenly TEJEDA SEND OUTS Final R esult [facility] [address] [place] [address], from Last 3 Months or Most Recently Relevant to Health Maintenance Insurance MEDICARE PART B HB ONLY [place] BLUE MR PB ONLY [place] BLUE HB ONLY MEDICARE PART A HB ONLY MEDICARE PPS [place] BLUE HB ONLY PENITENTIARY Advance Directives Documents on File Type Date Recorded Patient Registered Dental Hygienist Expl anation Healthcare Directive 07/13/2024 INVALID , NO SIGNATURES/DATES, 07/13/2024 POLST 07/13/2024 * Full Code (Latest Code Status on File) Date Activated Date Inactivated Comments 08/23/2024 2:56 PM 08/26/2024 5:05 PM Question Answer Comments Code Status Discussion: Unable to Assess Preferences, Provider to review later * Full Code Date Activated Date Inactivated Comments 08/22/2024 1:20 PM 08/23/2024 2:56 PM Question Answer Comments Code Status Discussion: Reviewed Preferences * Full Code Date Activated Date Inactivated Comments 08/06/2024 6:00 PM 08/21/2024 3:52 PM Question Answer Comments Code Status Discussion: Reviewed Preferences * Full Code Date Activated Date Inactivated Comments 06/14/2024 2:36 AM 07/13/2024 1:22 PM Question Answer Comments Code Status Discussion: Reviewed Preferences * Full Code Date Activated Date Inactivated Comments 06/14/2024 2:15 AM 06/14/2024 2:36 AM Question Answer Comments Code Status Discussion: Other Care Teams Barrel Drum Cutter Relationship Specialty Start Date End Date Payal Thornton MD [address] [address] PCP - General Family Practice 10/03/24 [facility] [address] [place] [address] 08/26/24 [place] [address] [place] [address] Endocrinology Endocrinology 04/18/25
--- OUTSIDE RECORDS SUMMARY | 2025-04-24 11:50 | XMS_ITS | Clinical Summary ---
Author Organization [facility] Address [address] [place] [id number] Care Team Providers Care Director Of Search Engine Marketing Name Role Phone None Reported, Pcp Primary Care Provider Unavail able Source Comments Patient records contain information from all sites at [facility]. For routine questions regarding patient records, call [phone] during business hours, M-F 8:00 AM - 5:00 PM Central Time. Record requests for emergency care only can be directed to [phone] at any time.[facility] Allergies Active Allergy Reactions Criticality Noted Date Comments Tramadol Other (see comments),Anxiety 024 Medic[address] aspirin [address] tablet Take 1 tablet by mouth daily. 4 Active losartan (Cozaar) 25 mg tablet Take 1 tablet by mouth daily. 4 Active methocarbamoL (Robaxin) 750 mg tablet Take 750 mg by mouth every 8 (eight) hours as needed. 4 Active omeprazole (PriLOSEC) [address] capsule Take 1 capsule by mouth 2 (two) times a day. 3 Active sildenafiL (Viagra) 100 mg tablet Take 100 mg by mouth at bedtime as needed. 3 Active tamsulosin (Flomax) 0.4 mg 24 hr capsule Take 0.8 mg by mouth. 2 Active atorvastatin (Lipitor) 80 mg tablet Take 80 mg by mouth daily. Active UNABLE TO FIND Take 1 each by mouth daily. Ganoderma Plus Active melatonin 1 mg/mL liquid Take by mouth at bedtime. Active diclofenac sodium (Voltaren) 75 mg EC tablet Take 1 tablet (75 mg total) by mouth 2 (two) times a day as needed for pain. 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 This was an incidental finding on CTA head/neck. Outside Neurology consult January 2024. Patient is planning to monitor with surveillance imaging in 1 year with MR brain angiogram. 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 Health Maintenance 03/07/2025 Clinical Communication [facility] in [address] [phone] Kelly Gallardo MPAS, P.A.-C. Health Maintenance from Last 3 Months Immunizations Immunization Administration Dates Next Due SARS-COV-2 (COVID-19) - MODERNA(Discontinued) Tdap 04/25/2008 Family History Medical History Relation Name Comments Alcohol abuse Father Les Stroke Father Les Lung cancer Mother Iris Relation Name Status Comments Father Les Mother Iris Social History Tobacco Use Types Packs/Day Years Used Date Smoking Tobacco: Never Passive Smoke Exposure: Never Smokeless Tobacco: Never Alcohol Use Standard Drinks/Week Comments Never 0 (1 standard drink = 0.6 oz pur e alcohol) [facility] Utilities Answer Date Recorded In the past 12 months has e electric, gas, oil, or water company threatened to shut off services in your [...] your living situation today? I have a [facility] place to live 02/24/2024 Sex and Gender Information Value Date Recorded Sex Assigned at Male 02/24/2024 6:10 PM CDT Legal Sex Male 12:13 PM CDT Gender Identity Male 02/24/2024 6:10 PM CDT Sexual Orientation Straight 02/24/2024 6: 10 PM CDT Last Filed Vital Signs Vital Sign Reading Time Taken Comments Blood Pressure 112/76 03/02/2024 2:47 PM CDT Pulse 82 03/02/2024 2:47 PM CDT Temperature 35.8 C (96.5 F) 03/02/2024 2:47 PM CDT Respiratory Rate 16 03/02/2024 2:47 PM CDT Oxygen Saturation - - Inhaled Oxygen Concentration - - Weight 106 kg (233 lb 0.4 oz) 03/02/2024 2:47 PM CDT Height 177 cm (5' 9.69) 03/02/2024 2:47 PM CDT Body Mass Index 33.74 03/02/2024 2:47 PM CDT Plan of Treatment Health Maintenance Due Date Last Done Comments CT Colonography 1955 Colonoscopy 1955 FIT 1955 Hepatitis C Screening 1955 Pneumococcal vaccine (50+ years) (1 of 1 - PCV) 2004 Zoster Vaccines (1 of 2) 2004 DTaP,Tdap,and Td Vaccines (2 - Td or Tdap) 04/25/2018 04/25/2008 Depression Screening (Annual PHQ-2) 07/12/2024 Fall Risk Screen (Annual) 07/12/2024 Office Visit for Blood Pressure Check / Re-check 03/02/2025 03/02/2024 COVID-19 Vaccine ( season) 2025 05/15/2021, 10/14/2020, 09/16/2020 Influenza Vaccine (#1) 2025 Creatinine Level (Kidney Function Test) 03/02/2026 03/02/2025, 01/01/2025, 10/26/2024, Additional history exists Potassium Level 03/02/2026 03/02/2025, 12/11, 10/26/2024, Additional history exists Sodium Level 03/02/2026 03/02/2025, 12/11, 10/26/2024, Additional history exists Cologuard 05/01/2027 05/01/2024 Colorectal Cancer Screening 05/01/2027 Fasting Glucose for Diabetes Screening 03/02/2028 03/02/2025, 01/01/2025, 10/26/2024, Additional history exists IPV Vaccines Aged Out No longer eligi ble based on patient's age to complete this topic Medical Devices Implanted Type Area Manager Image Device Identifier Shelf Expiration Date Model / Serial / Lot Hip Implant-01/14/20 15 Implanted:11/2014 (Quantity not on file) Hip Implant Left: Hip Procedures Procedure Name Priority Date/Time Associated Diagnosis Comments COLOGUARD Routine 05/01/2024 10:15 PM CDT Screening Cancer Colon from Last 3 Months or Most Recently Relevant to Health Maintenance Results * Cologuard - Sent Out Lab (05/01/2024 10:15 PM CDT) Result Negative Negative 05/09/2024 9:13 AM CDT EXLI Comment: NEGATIVE TEST RESULT. A negative Cologuard result indicates a low likelihood that a colorectal cancer (CRC) or advanced adenoma (adenomatous polyps with more advanced pre-malignant features) is present. The chance that a person with a negative Cologuard test has a colorectal cancer is less than 1 in 1500 (negative predictive value >99.9%) or has an advanced adenoma is less than 5.3% (negative predictive value 94.7%). These data are based on a prospective cross-sectional study of 10,000 individuals at average risk for colorectal cancer who were screened with both Cologuard and colonoscopy. (Stephanie Yu, N Engl J Med 2014;370(14):8635-1475) The normal value (reference range) for this assay is negative. COLOGUARD RE-SCREENING RECOMMENDATION: Periodic colorectal cancer screening is an important part of preventive healthcare for asymptomatic individuals at average risk for colorectal cancer. Following a negative Cologuard result, the [place] [employer] Society and U.S. Multi-Society Task Force screening guidelines recommend a Cologuard re-screening interval of 3 years. References: [place] [employer] Guideline for Colorectal Cancer Screening: https://www.cancer.org/cancer/etgrq-abhifh-eigxna/detection- diagnosis-staging/acs-recommendations.html.; Chris DK, Buster MOSS, Dianelys CarusoK, Colorectal Cancer Screening: Recommendations for Physicians and Patients from the U.S. Multi-Society Task Force on Colorectal Cancer Screening , Am J Gastroenterology 2017; 112:9378-5583. TEST DESCRIPTION: Composite algorithmic analysis of stool DNA-biomarkers with hemoglobin immunoassay. Quantitative values of individual biomarkers are not reportable and are not associated with individual biomarker result reference ranges. Cologuard is intended for colorectal cancer screening of adults of either sex, 45 years or older, who are at average-risk for colorectal cancer (CRC). Cologuard has been approved for use by the U.S. FDA. The performance of Cologuard was established in a cross sectional study of average-risk adults aged 50-84. Cologuard performance in patients ages 45 to 49 years was estimated by sub-group analysis of near-age groups. Colonoscopies performed for a positive result may find as the most clinically significant lesion: colorectal cancer [4.0%], advanced adenoma (including sessile serrated polyps greater than or equal to 1cm diameter) [20%] or non- advanced adenoma [31%]; or no colorectal neoplasia [45%]. These estimates are derived from a prospective cross-sectional screening study of 10,000 individuals at average risk for colorectal cancer who were screened with both Cologuard and colonoscopy. (Stephanie Yu, N Engl J Med 2014;370(14):9865-1285.) Cologuard may produce a false negative or false positive result (no colorectal cancer or precancerous polyp present at colonoscopy follow up). A negative Cologuard test result does not guarantee the absence of CRC or advanced adenoma (pre-cancer). The current Cologuard screening interval is every 3 years. ([place] [employer] Society and U.S. Multi-Society Task Force). Cologuard performance data in a 10,000 patient pivotal study using colonoscopy as the reference method can be accessed at the following location: www.Orate.Lumenz/results. Additional description of the Cologuard test process, warnings and precautions can be found at www.cologuard.com. Stool (Stool) 05/01/2024 10: 15 PM CDT 05/03/2024 10:16 AM CDT Kelly DYSON, P.A.-C. LAB BODY FLUIDS A ND STOOLS ORDERABLES Final Result [employer] [address] [place] [id number] EX [employer] [address] [facility] [address], [address] [place] [address] from Last 3 Months or Most Recently Relevant to Health Maintenance Insurance [facility] MEDICARE Care Teams Director Of Search Engine Marketing Relationship Specialty Start Date End Date None Reported, Pcp PCP - General Family Medicine 03/26/25
--- NOTE | 2025-04-24 12:13 | ED.GENADULT ---
HPI - General Adult General Time Seen by Provider: 12:14 Date Seen: 04/24/25 Chief complaint: Hip Injury/Pain Stated complaint: Hip pain Time Seen by Provider: 04/24/25 11:51 Source: patient and RN notes reviewed Mode of arrival: ambulatory Limitations: no limitations History of Present Illness HPI narrative: This 70yo male is presenting to the ED with concerns of a left hip dislocation. He was doing routine stretches, felt his hip abnormal and then could not bear weight on it. There is pain with any movement of that leg in the hip. Feels a numb sensation in it, pulsing sensation. No fall or injury. This hip was a revision in August at [facility]. He had septic hip joint in June. He ate about 11 this morning, this happened about 1130. Related Data Home Medications ?Medication ?Instructions ?Recorded ?Confirmed diclofenac sodium 75 mg 75 mg PO BID PRN pain 06/08/24 06/08/24 tablet,delayed release methocarbamol 750 mg tablet 750 mg PO Q8H PRN muscle spasm 06/08/24 06/08/24 allopurinol 100 mg tablet 100 mg PO DAILY 04/24/25 04/24/25 atorvastatin 80 mg tablet 80 mg PO QPM 04/24/25 04/24/25 colchicine 0.6 mg tablet mg PO 04/24/25 duloxetine 30 mg capsule,delayed 30 mg PO DAILY 04/24/25 04/24/25 release ferrous sulfate 325 mg (65 mg 325 mg PO DAILY 04/24/25 04/24/25 iron) tablet (FeroSul) folic acid 1 mg tablet 1 mg PO DAILY 04/24/25 04/24/25 losartan 25 mg tablet 25 mg PO DAILY 04/24/25 04/24/25 penicillin V potassium 500 mg 500 mg PO BID 04/24/25 04/24/25 tablet ropinirole 1 mg tablet 1 mg PO QPM 04/24/25 04/24/25 sildenafil 100 mg tablet 100 - 200 mg PO DAILY PRN 04/24/25 04/24/25 tamsulosin 0.4 mg capsule 0.8 mg PO DAILY 04/24/25 04/24/25 Allergies Allergy/AdvReac Type Severity Reaction Status Date / Time tramadol Allergy Intermediate depression Verified 04/24/25 12:12 Review of Systems Status of ROS: Reports: 6 or more systems reviewed and unremarkable except as noted in History and below PFSH PFSH Medical History History of prostate cancer ?Z85.46 - Personal history of malignant neoplasm of prostate (ICD-10) Surgical History History of hip replacement ?Z96.649 - Presence of unspecified artificial hip joint (ICD-10) Social History Smoking Status: Never smoker Do you use any of these nicotine containing products: None How often do you have a drink containing alcohol: never AUDIT-C Alcohol total score: 0 Non-prescribed substance use: denies use Exam Const: Vital Signs, click to edit/add: Vital Signs - 24 hr 04/24/25 11:59 04/24/25 12:30 04/24/25 12:36 Temperature 98.2 F Pulse Rate Pulse Rate [Pulse Oximeter] 56 L Respiratory Rate 18 Blood Pressure Blood Pressure [Le ft Upper Arm] 183/95 H Pulse Oximetry 97 98 98 Oxygen Delivery Me thod Room Air Room Air 04/24/25 13:00 04/24/25 13:15 04/24/25 13:20 Temperature Pulse Rate 53 L 52 L 54 L Pulse Rate [Pulse Oximeter] Respiratory Rate 11 L 8 L 15 Blood Pressure 161/96 H Blood Pressure [Le ft Upper Arm] Pulse Oximetry 99 98 96 Oxygen Delivery Me thod 04/24/25 13:30 04/24/25 13:31 04/24/25 13:32 Temperature Pulse Rate 58 L 56 L 59 L Pulse Rate [Pulse Oximeter] Respiratory Rate 12 15 Blood Pressure 176/94 H 171/84 H Blood Pressure [Le ft Upper Arm] Pulse Oximetry 98 97 97 Oxygen Delivery Me thod 04/24/25 13:38 04/24/25 13:42 04/24/25 13:48 Temperature Pulse Rate 102 H 118 H 66 Pulse Rate [Pulse Oximeter] Respiratory Rate 19 9 L 14 Blood Pressure 247/173 H 232/125 H 169/93 H Blood Pressure [Le ft Upper Arm] Pulse Oximetry 98 97 91 Oxygen Delivery Me thod 04/24/25 13:53 04/24/25 13:57 04/24/25 14:03 Temperature Pulse Rate 64 64 56 L Pulse Rate [Pulse Oximeter] Respiratory Rate 9 L 31 H 15 Blood Pressure 142/89 H 146/97 H 140/89 H Blood Pressure [Le ft Upper Arm] Pulse Oximetry 92 94 95 Oxygen Delivery Me thod 04/24/25 14:08 04/24/25 14:13 04/24/25 14:17 Temperature Pulse Rate 57 L Pulse Rate [Pulse Oximeter] Respiratory Rate 10 L 15 16 Blood Pressure 140/94 H 144/88 H 160/109 H Blood Pressure [Le ft Upper Arm] Pulse Oximetry Oxygen Delivery Me thod 04/24/25 14:33 Temperature Pulse Rate 51 L Pulse Rate [Pulse Oximeter] Respiratory Rate 14 Blood Pressure 161/110 H Blood Pressure [Le ft Upper Arm] Pulse Oximetry Oxygen Delivery Me thod Patient is initially in wheelchair and is assisted to bed with nursing staff. He is baseline alert, interactive, no apparent distress but with any movement of his left leg, has immediate and significant discomfort. Left leg looks angulated in differently than the right but still has good peripheral warmth, normal skin color and normal sensation. No swelling of this leg noted. Face atraumatic, speech normal, sclera clear with conjugate gaze. Lungs are clear, no wheezing or crackles. Heart is regular, no murmur heard. Abdomen soft, nontender. Documenting provider has reviewed patient's vital signs: yes Course Course ED Course: Suspect dislocation, will work on getting imaging an IV placement for pain management. Will need to proceed with conscious sedation if dislocated. Reevaluation(s) Time of Reevaluation #1: 13:50 Reevaluation #1: This patient had been consented on intubation for hip relocation for left hip dislocation. Anesthesia was present and intubated the patient, please see their notes. It was felt that it was safest for this patient to have airway protection given that he had recently eaten and would be having a hip reduction. There are no airway or cardiovascular complications. I attempted the hip reduction but just could not get the hip over the edge of the acetabulum. Dr. Goins was present with me and assisted and the hip was relocated. Post reduction images show satisfactory relocation of the hip, no fractures on my preliminary review. Patient was extubated and recovering nicely. Will complete his post anesthesia protocol prior to discharge. Consultations Consultation #1: Spoke with Dr. Esqueda his orthopedist. He would like him placed a knee immobilizer until follow-up. Patient is updated on his conversation. Time: 14:19 Vital Signs Vital signs: Initial Vital Signs Temperature 98.2 F 04/24/25 11:59 Temperature Source Temporal Artery Scan 04/24/25 11:59 Pulse Rate 56 L 04/24/25 11:59 Respiratory Rate 18 04/24/25 11:59 Blood Pressure 183/95 H 04/24/25 11:59 Blood Pressure Mean 124 H 04/24/25 11:59 Blood Pressure Position Sitting 04/24/25 11:59 Pulse Oximetry 97 04/24/25 11:59 Oxygen Delivery Method Room Air 04/24/25 11:59 Vital Signs Temperature 98.2 F 04/24/25 11:59 Pulse Rate 56 L 04/24/25 11:59 Respiratory Rate 18 04/24/25 11:59 Blood Pressure 183/95 H 04/24/25 11:59 Pulse Oximetry 97 04/24/25 11:59 Oxygen Delivery Method Room Air 04/24/25 11:59 Temperature 98.2 F 04/24/25 11:59 Pulse Rate 51 L 04/24/25 14:33 Respiratory Rate 14 04/24/25 14:33 Blood Pressure 161/110 H 04/24/25 14:33 Pulse Oximetry 95 04/24/25 14:03 Oxygen Delivery Method Room Air 04/24/25 12:36 Medications Administered Medications: Discontinued Medications Generic Name Dose Route Start Last Admin Trade Name Freq PRN Reason Stop Dose Admin Fentanyl 50 mcg 04/24/25 12:18 04/24/25 12:23 Fentanyl 100 Mcg/2 Ml Inj IVP 04/24/25 12:19 50 mcg ONCE ONE Administration Medical Decision Making Imaging Data XR left hip: Attestation: I have reviewed the pertinent imaging results. My impression: Superior dislocation noted on initial films. Post reduction film shows relocation without any definitive fracture on my preliminary review. Radiologist's impression: Patient: CHANDRIKA EVANS Facility:?[facility] Patient ID:?[id number] Site Patient ID:?[id number]. Site :?[id number] Study:?XRay-Pelvis 1 VIEW-04/24/2025 12:40:55 PM Ordering Physician:Gia Garcia Final Report: Indication: Evaluate for dislocation Technique: One view of the pelvis Comparison: None. Findings/Impression: Status post left total hip arthroplasty with superior dislocation of the femoral component from the acetabular cup. No definite acute fracture. Multiple ossific densities are present along the proximal femoral component that may reflect heterotopic ossification. Mild periprosthetic lucency along the proximal femoral stem. Moderate osteoarthrosis of the right hip. Advanced degenerative changes of the imaged lower lumbar spine. Brachytherapy seeds within the prostate. Dictated by Shoshana Melton MD @ 04/24/2025 12:47:14 PM (Electronic Signature) Patient: CHANDRIKA EVANS Facility:?[facility] Patient ID:?[id number] Site Patient ID:?[id number]. Site :?[id number] Study:?XRay-Pelvis 1V-04/24/2025 1:50:17 PM Ordering Physician:?Luz Garcia Final Report: Indication: Post reduction. Technique: Single AP view of the pelvis. Comparison: Pelvic radiograph from earlier the same day. Findings/Impression: Interval reduction of the prosthetic femoral head of the left total hip arthroplasty into appropriate position within the acetabular cup. No definite acute fracture visualized. Alignment is now anatomic. The remainder of the exam is unchanged. Dictated by Pieter Salazar MD @ 04/24/2025 1:53:46 PM (Electronic Signature) Discharge Plan Discharge Clinical Impression: Dislocation, hip Patient Disposition: Home, Self-Care Condition: Stable Instructions: Hip Dislocation (ED) Additional Instructions: Need to contact Dr. Esqueda's office to get scheduled for a follow-up. He wants you to wear knee immobilizer until you see him in follow-up. If you have any residual discomfort, recommend Tylenol per bottle directions. Activity Detail: Need to keep knee immobilizer on but can ambulate with it on. Prescriptions: No Action methocarbamol 750 mg tablet 750 mg PO Q8H PRN (Reason: muscle spasm) diclofenac sodium 75 mg tablet,delayed release (DR/EC) 75 mg PO BID PRN (Reason: pain) atorvastatin 80 mg tablet 80 mg PO QPM ropinirole 1 mg tablet 1 mg PO QPM penicillin V potassium 500 mg tablet 500 mg PO BID allopurinol 100 mg tablet 100 mg PO DAILY sildenafil 100 mg tablet 100 - 200 mg PO DAILY PRN tamsulosin 0.4 mg capsule 0.8 mg PO DAILY ferrous sulfate [FeroSul] 325 mg (65 mg iron) tablet 325 mg PO DAILY losartan 25 mg tablet 25 mg PO DAILY folic acid 1 mg tablet 1 mg PO DAILY colchicine 0.6 mg tablet PO duloxetine 30 mg capsule,delayed release(DR/EC) 30 mg PO DAILY Follow Up/Referrals: Dominic Zhou MD [Primary Care Provider, Family Practice] Stand Alone Forms: [facility] Info Instructions
--- NOTE | 2025-04-24 12:14 | CRLHL7_ITS ---
For Patients: As a result of the Century Cures Act, medical imaging exams and procedure reports are released immediately into your electronic medical record. You may view this report before your referring provider. If you have questions, please contact your health care provider. Indication: Evaluate for dislocation Technique: One view of the pelvis Comparison: None. Findings/Impression: Status post left total hip arthroplasty with superior dislocation of the femoral component from the acetabular cup. No definite acute fracture. Multiple ossific densities are present along the proximal femoral component that may reflect heterotopic ossification. Mild periprosthetic lucency along the proximal femoral stem. Moderate osteoarthrosis of the right hip. Advanced degenerative changes of the imaged lower lumbar spine. Brachytherapy seeds within the prostate. Dictated by Shoshana Melton MD @ 04/24/2025 12:47:14 PM (Electronically Signed)
--- NOTE | 2025-04-24 13:38 | CRLHL7_ITS ---
For Patients: As a result of the Century Cures Act, medical imaging exams and procedure reports are released immediately into your electronic medical record. You may view this report before your referring provider. If you have questions, please contact your health care provider. Indication: Post reduction. Technique: Single AP view of the pelvis. Comparison: Pelvic radiograph from earlier the same day. Findings/Impression: Interval reduction of the prosthetic femoral head of the left total hip arthroplasty into appropriate position within the acetabular cup. No definite acute fracture visualized. Alignment is now anatomic. The remainder of the exam is unchanged. Dictated by Pieter Salazar MD @ 04/24/2025 1:53:46 PM (Electronically Signed)
--- NOTE | 2025-04-24 13:55 | P.ANES_ITS ---
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
--- NOTE | 2025-04-24 13:55 | W.ANESCHARGE ---
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
== END 2025-04-24 14:56 | disposition home or self-care (01) ==
PROVIDERS: Emergency Provider Family Medicine; PCP Family Medicine
DX: S73.005A Unspecified dislocation of left hip, initial encounter (principal); T84.021A Dislocation of internal left hip prosthesis, initial encounter; X58.XXXA Exposure to other specified factors, initial encounter; Y93.89 Activity, other specified
CPT/HCPCS: 01200; 27252; 72170; 94761; 99100; 99140; 99284; 99285; J0330; J2704; J3010